=== PATIENT | male | born 1945 | race Caucasian/White ===

== ENCOUNTER → 2016-04-24 | Outpatient (CLI) | payer MEDICARE, OTHER ==
[~2016-04-24] MED LIST: APIX5TAB OR; ASPI-231 PO; FLUO20CA19 PO; LISI-706 PO; METO25TA62 PO; OMEP20CA5 OR; POTA10TA75 PO; SIMV-13 PO
[2016-04-24 13:15] LABS: Albumin 3.8 g/dL (3.4-5.0); BUN/Creatinine Ratio 11.5; Calcium 9.1 mg/dL (8.5-10.1); Potassium 3.8 mmol/L (3.5-5.1)
[2016-04-24 13:18] LABS: Bilirubin, Total 0.5 mg/dL (0.2-1.0); Total Protein 7.3 g/dL (6.4-8.2)
[2016-04-24 13:47] LABS: Basophils # (auto) 0.1 uL; DEFINITIVE VIEW TRANSMISSION; Eosinophils # (auto) 0.2 uL; Eosinophils % (auto) 3.2 % (0.0-7.0); Hematocrit 47.3 % (41.0-53.0); Hemoglobin 14.6 g/dL (13.5-17.5); Lymphocytes # (auto) 2.2 uL; Lymphocytes % (auto) 30.9 % (10.0-50.0); Mean Corpuscular Hemoglobin 28.8 pg (28.0-32.0); Mean Corpuscular Hgb Conc. 30.9 g/dL (32.0-36.0); Mean Corpuscular Volume 93.3 fL (80.0-100.0); Mean Platelet Volume 9.4 fL (7.4-10.4); Monocytes # (auto) 0.7 uL; Monocytes % (auto) 9.2 % (0.0-12.0); Neutrophils % (auto) 55.7 % (37.0-80.0); Platelet Count (auto) 271 10^3/uL (140-450); Red Cell Distribution Width 14.9 % (11.6-16.0); White Blood Cell 7.1 10^3/uL (4.4-10.8)
== END | disposition home or self-care (01) ==
LOC: LAB 10:12
PROVIDERS: ATTEND Internal Medicine
DX: I10 Essential (primary) hypertension (principal); I25.10 Atherosclerotic heart disease of native coronary artery without angina pectoris
CPT/HCPCS: 36415; 80053; 84153; 84439; 84443; 85025

== ENCOUNTER 2021-01-15 07:15 | Day surgery (SDC) | payer MEDICARE, OTHER ==
[~2021-01-15] VITALS: Ht 182.9 cm; Wt 93.0 kg
[~2021-01-15 07:15] MED LIST changes: -ASPI-231 PO; +ASPI1TAB20 PO; -METO25TA62 PO; +METO25TA93 PO; -OMEP20CA5 OR; +OMEP20CA74 OR; +POTA-264 PO; -POTA10TA75 PO
[2021-01-15] MEDS ORDERED: ANGIOMAX 250 MG VIAL IV ONE (10:30)
[2021-01-15] MEDS ORDERED: MIDAZOLAM HCL 2MG/2ML 2ml VIAL (1mg/ml) ONE (10:30)
[2021-01-15] MEDS ORDERED: HEPARIN SODIUM (PORCINE) 5000 UNITS/ML 1ML VIAL ONE (10:30)
[2021-01-15] MEDS ORDERED: VERAPAMIL 2.5MG/ML INJ 2ML VIAL IV ONE (10:30)
[2021-01-15] MEDS ORDERED: LIDOCAINE 2%HCL (LOCAL ANESTH.) INJ 20ML MDV ONE (10:31)
[2021-01-15] MEDS ORDERED: fentaNYL CITRATE 100 MCG/2 ML VL ONE (10:31)
[2021-01-15] MEDS ORDERED: SODIUM CHL 0.9% 0 ML ONE (10:31)
[2021-01-15] MEDS ORDERED: IODIXANOL 320MG/ML 100ML BTL IV ONE ×2 (11:16→11:21)
== END 2021-01-15 14:10 | disposition home or self-care (01) ==
LOC: CATH 07:15
PROVIDERS: ATTEND Internal Medicine
DX: I27.20 Pulmonary hypertension, unspecified (principal); Z20.822 Contact with and (suspected) exposure to COVID-19
CPT/HCPCS: 93460; C1751; C1760; C1894; J1644; J2250; J3010; J7030; Q9967; U0003; 99152; 99153

== ENCOUNTER → 2021-09-01 | Outpatient (CLI) | payer MEDICARE | END | disposition home or self-care (01) | LOC: XYW 10:27 | PROVIDERS: ATTEND Internal Medicine | DX: I08.2 Rheumatic disorders of both aortic and tricuspid valves (principal); I25.810 Atherosclerosis of coronary artery bypass graft(s) without angina pectoris | CPT/HCPCS: 93306 ==

== ENCOUNTER → 2022-01-13 | Outpatient (CLI) | payer OTHER ==
[2022-01-13 07:38] LABS: Calcium 9.3 mg/dL (8.5-10.1); Potassium 3.6 mmol/L (3.5-5.1)
[2022-01-13 07:41] LABS: BUN/Creatinine Ratio 13.7; Bilirubin, Total 1.2 mg/dL (0.2-1.0); Total Protein 6.8 g/dL (6.4-8.2); Uric Acid 5.4 mg/dL (3.5-7.2)
[2022-01-13 08:14] LABS: Basophils # (auto) 0.1 10 ^3/uL (0-0.2); Basophils % (auto) 1.4 % (0.0-2.0); Eosinophils # (auto) 0.2 10 ^3/uL (0-0.8); Eosinophils % (auto) 3.2 % (0.0-7.0); Hematocrit 40.5 % (41.0-53.0); Hemoglobin 14.4 g/dL (13.5-17.5); Lymphocytes # (auto) 2.6 10 ^3/uL (0.4-5.4); Lymphocytes % (auto) 41.2 % (10.0-50.0); Mean Corpuscular Hemoglobin 33.4 pg (28.0-32.0); Mean Corpuscular Hgb Conc. 35.6 g/dL (32.0-36.0); Mean Corpuscular Volume 93.9 fL (80.0-100.0); Monocytes # (auto) 0.5 10 ^3/uL (0-1.3); Monocytes % (auto) 7.5 % (0.0-12.0); Neutrophils # (auto) 2.9 10 ^3/uL (1.6-8.6); Neutrophils % (auto) 46.7 % (37.0-80.0); Nucleated Red Blood Cells % 0.4 %; Red Blood Cells 4.31 10^6/uL (4.5-5.90); Red Cell Distribution Width 12.9 % (11.8-14.3); White Blood Cell 6.3 10^3/uL (4.4-10.8)
== END | disposition home or self-care (01) ==
LOC: LAB 06:38
PROVIDERS: ATTEND Internal Medicine
DX: I25.10 Atherosclerotic heart disease of native coronary artery without angina pectoris (principal); I10 Essential (primary) hypertension
CPT/HCPCS: 36415; 80053; 83721; 84550; 85025

== ENCOUNTER → 2022-09-04 | Outpatient (CLI) | payer OTHER ==
[2022-09-04 06:38] LABS: Basophils # (auto) 0.1 10 ^3/uL (0-0.2); Basophils % (auto) 1.1 % (0.0-2.0); Eosinophils # (auto) 0.2 10 ^3/uL (0-0.8); Eosinophils % (auto) 2.7 % (0.0-7.0); Hematocrit 41.7 % (41.0-53.0); Hemoglobin 14.7 g/dL (13.5-17.5); Lymphocytes % (auto) 32.8 % (10.0-50.0); Mean Corpuscular Hemoglobin 33.9 pg (28.0-32.0); Mean Corpuscular Hgb Conc. 35.3 g/dL (32.0-36.0); Mean Corpuscular Volume 96.3 fL (80.0-100.0); Monocytes # (auto) 0.7 10 ^3/uL (0-1.3); Monocytes % (auto) 7.8 % (0.0-12.0); Neutrophils # (auto) 5.1 10 ^3/uL (1.6-8.6); Neutrophils % (auto) 55.6 % (37.0-80.0); Nucleated Red Blood Cells % 0.3 %; Red Blood Cells 4.33 10^6/uL (4.5-5.90); Red Cell Distribution Width 13.7 % (11.8-14.3); White Blood Cell 9.2 10^3/uL (4.4-10.8)
[2022-09-04 07:18] LABS: Urine Bacteria NONE SEEN /hpf (None Seen); Urine Blood Negative /uL (Negative); Urine Specific Gravity 1.013 (1.001-1.035); Urine WBC <1 /hpf (0 - 3)
[2022-09-04 07:19] LABS: Potassium 3.5 mmol/L (3.5-5.1)
[2022-09-04 07:26] LABS: BUN/Creatinine Ratio 14.4 (10.0-20.0); Bilirubin, Total 1.3 mg/dL (0.2-1.0); Calcium 9.2 mg/dL (8.5-10.1)
[2022-09-04 07:52] LABS: Free T4 (Free Thyroxine) 0.96 ng/dL (0.89-1.76); Prostate Specific Antigen 2.33 ng/mL (0.0-4.0)
[2022-09-04 07:53] LABS: Folate (Folic Acid) > 24.00 ng/mL (5.38-24)
== END | disposition home or self-care (01) ==
LOC: LAB 06:06
PROVIDERS: ATTEND Internal Medicine
DX: I10 Essential (primary) hypertension (principal); E78.5 Hyperlipidemia, unspecified; I25.10 Atherosclerotic heart disease of native coronary artery without angina pectoris
CPT/HCPCS: 36415; 80053; 80061; 81001; 82607; 82746; 84153; 84439; 84443; 85025; 85652

== ENCOUNTER → 2022-11-02 | Outpatient (CLI) | payer OTHER | END | disposition home or self-care (01) | LOC: XYW 13:41 | DX: I51.7 Cardiomegaly (principal); I48.91 Unspecified atrial fibrillation | CPT/HCPCS: 93306 ==

== ENCOUNTER → 2022-11-06 | Outpatient (CLI) | payer OTHER | END | disposition home or self-care (01) | LOC: LAB 13:45 | PROVIDERS: ATTEND Family Medicine | DX: L82.1 Other seborrheic keratosis (principal) | CPT/HCPCS: 88302 ==

== ENCOUNTER → 2022-11-12 | Outpatient (CLI) | payer OTHER ==
[2022-11-12 07:20] LABS: Alanine Aminotransferase 55 U/L (7-40); Albumin 4.7 g/dL (3.2-4.8); Alkaline Phosphatase 69 U/L (46-116); Anion Gap 7.4 (5-15); Aspartate Aminotransferase 50 U/L (13-40); BUN/Creatinine Ratio 17.7 (10.0-20.0); Blood Urea Nitrogen 17 mg/dL (9-23); Carbon Dioxide 25.6 mmol/L (20-30); Chloride 102 mmol/L (98-107); Glucose 106 mg/dL (74-106); Potassium 4.2 mmol/L (3.5-5.1); Sodium 135 mmol/L (136-145)
[2022-11-12 07:21] LABS: Total Protein 6.9 g/dL (5.7-8.2)
== END | disposition home or self-care (01) ==
LOC: LAB 05:59
PROVIDERS: ATTEND Student in an Organized Health Care Education/Training Program
DX: I10 Essential (primary) hypertension (principal); I48.91 Unspecified atrial fibrillation
CPT/HCPCS: 36415; 80053

== ENCOUNTER → 2023-02-03 | Outpatient (CLI) | payer OTHER ==
[2023-02-03 11:19] LABS: Alanine Aminotransferase 47 U/L (7-40); Alkaline Phosphatase 71 U/L (46-116); Anion Gap 8 (5-15); Blood Urea Nitrogen 18 mg/dL (9-23); Calcium 10.3 mg/dL (8.5-10.1); Carbon Dioxide 28 mmol/L (20-30); Chloride 102 mmol/L (98-107); Glucose 111 mg/dL (74-106); Potassium 4.4 mmol/L (3.5-5.1); Sodium 138 mmol/L (136-145)
[2023-02-03 11:21] LABS: Aspartate Aminotransferase 50 U/L (13-40)
[2023-02-03 11:22] LABS: Bilirubin, Total 1.5 mg/dL (0.2-1.0); Total Protein 7.6 g/dL (5.7-8.2)
[2023-02-03 11:39] LABS: Uric Acid 2.8 mg/dL (3.7-9.2)
== END | disposition home or self-care (01) ==
LOC: LAB 10:21
PROVIDERS: ATTEND Internal Medicine
DX: I25.10 Atherosclerotic heart disease of native coronary artery without angina pectoris (principal); I10 Essential (primary) hypertension
CPT/HCPCS: 36415; 80053; 84439; 84443; 84550

== ENCOUNTER 2024-09-29 09:02 | Emergency (ER) | payer OTHER ==
[~2024-09-29] VITALS: Ht 182.9 cm; Wt 87.6 kg
--- NOTE | 2024-09-29 09:19 | ED.PDOC ---
Musculoskeletal HPI Comments A 78 YEAR OLD MALE PRESENTS TO THE ED WITH COMPLAINT OF HEAD INJURY, LEFT HAND PAIN, AND ABRASION OF LEFT FOREARM S/P FALL. PATIENT STATES [place] 1 W[place] AND HE ACCIDENTALLY TRIPPED AND FELL. PATIENT REPORTS HE HIT HIS HEAD AND LANDED ON HIS LEFT ARM. PATIENT REPORTS HE SUSTAINED AN ABRASION ON HIS LEFT FOREARM AND IS NOW EXPERIENCING LEFT HAND PAIN WITH SWELLING. PATIENT DENIES NECK INJURY, LOC, FEVER, CHILLS, SHORTNESS OF BREATH, CHEST PAIN, ABDOMINAL PAIN, NAUSEA, VOMITING, OR OTHER COMPLAINTS. NO OTHER SYMPTOMS OR MODIFYING FACTORS AT THIS TIME. PATIENT IS ALERT, ORIENTED X 4, AND HAS STEADY GAIT. Chief Complaint: Upper Extremity Time Seen by MD: 09:08 Reviewed Notes: Nurses Notes, Medications, Allergies Allergies: Coded Allergies: No Known Drug Allergy (Verified Allergy, Unknown, 01/13/21) Information Source: Patient Mode of Arrival: Ambulatory Location: Left Extremity Location: Forearm, Hand, Other (HEAD) Timing: Days Prehospital treatment: None Severity: Moderate Able to Move Extremity: Yes Bear Weight: Fully Pain: Moderate Mechanism: Blunt Trauma Circumstances: Fall Onset of Symptoms: After Trauma Symptoms: Pain Last Tetanus: Unknown Associated signs and symptoms: None Past Medical History PAST MEDICAL HISTORY: AFIB, High Lipids, HTN Past Medical History (Other): DDD Surgical History: Denies all surgeries Family History Family History: Reviewed,noncontributory to illness Social History Smoker: Non-Smoker Alcohol: Denies ETOH Use Drugs: Denies Drug Use Lives In: Home Constitutional: denies: chills, diaphoresis, fatigue, fever, malaise, sweats, weakness, others EENTM: denies: blurred vision, double vision, ear bleeding, ear discharge, ear drainage, ear pain, ear ringing, eye pain, eye redness, hearing loss, mouth pain, mouth swelling, nasal discharge, nose bleeding, nose congestion, nose pain, photophobia, tearing, throat pain, throat swelling, voice changes, others Respiratory: denies: cough, hemoptysis, orthopnea, SOB at rest, shortness of breath, SOB with excertion, stridor, wheezing, others Cardiovascular: denies: chest pain, dizzy spells, diaphoresis, Dyspnea on exertion, edema, irregular heart beat, left arm pain, lightheadedness, palpitations, PND, syncope, others Gastrointestinal: denies: abdomen distended, abdominal pain, blood streaked bowels, constipated, diarrhea, dysphagia, difficulty swallowing, hematemesis, melena, nausea, poor appetite, poor fluid intake, rectal bleeding, rectal pain, vomiting, others Genitourinary: denies: burning, dysuria, flank pain, frequency, hematuria, incontinence, penile discharge, penile sore, pain, testicle pain, testicle swelling, urgency, others Neurological: denies: dizziness, fainting, headache, left sided numbness, left sided weakness, numbness, paresthesia, pre-existing deficit, right sided numbness, right sided weakness, seizure, speech problems, tingling, tremors, weakness, others Musculoskeletal: reports: joint pain, joint swelling, muscle pain, others (LEFT HAND PAIN); denies: back pain, gout, muscle stiffness, neck pain Integumetry: reports: others (ABRASION OF LEFT FOREARM); denies: bruises, change in color, change in hair/nails, dryness, laceration, lesions, lumps, rash, wounds Allergic/Immunocompromised: denies: Difficulty Healing, Frequent Infections, Hives, Itching, others Hematologic/Lymphatic: denies: anemia, blood clots, easy bleeding, easy bruising, swollen glands, others Endocrine: denies: excessive hunger, excessive sweating, excessive thirst, excessive urination, flushing, intolerance to cold, intolerance to heat, unexplained weight gain, unexplained weight loss, others Psychiatric: denies: anxiety, bipolar disorder, depression, hopeless, panic disorder, schizophrenia, sleepless, suicidal, others All Other Systems: Reviewed and Negative Physical Exam General Appearance: No Apparent Distress, Normal HEENT: Head (NO SCALP CONTUSION AND HEMATOMA, NO DEFORMITY. ), Normal ENT Inspection, PERRL/EOMI, Pharynx Normal, TMs Normal Neck: Full Range of Motion, Non-Tender, Normal, Normal Inspection Respiratory: Chest Non-Tender, Lungs Clear, No Accessory Muscle Use, No Respiratory Distress, Normal Breath Sounds Cardiovascular: No Edema, No JVD, No Murmur, No Gallop, Normal Peripheral Pulses, Regular Rate/Rhythm Breast Exam: Deferred Gastrointestinal: No Organomegaly, Non Tender, No Pulsatile Mass, Normal Bowel Sounds, Soft Genitalia: Deferred Pelvic: Deferred Rectal: Deferred Extremities: No calf tenderness, Normal capillary refill, Normal range of motion, No pedal edema, Swelling (TENDERNESS AND MILD SWELLING ON LEFT THUMB, NO BONY TENDERNESS AND DEFORMITY. ), Tender (AND ABRASION ON LEFT FOREARM, NO BONY TENDERNESS AND SWELLING, NO DEFORMITY. ) Musculoskeletal : Apperance: Normal Neurologic: Alert, strategic planning specialist II-XII nml as Tested, No Motor Deficits, Normal Affect, Normal Mood, No Sensory Deficits Cerebellar Function: Normal Reflexes: Normal Skin: Dry, Normal Color, Warm, Wounds (ABRASION ON LEFT POSTERIOR FOREARM, NO BLEEDING AND FB. ) Peripheral Pulses: 2+ carotid (R), 2+ carotid (L) Lymphatic: No Adenopathy Was a procedure done? Was a procedure done?: No Differential Diagnosis EXT Differential Diagnosis: Fracture, Sprain, DJD, Contusion, Strain, Arthritis Other Differential Diagnosis ABRASION OF LEFT FOREARM X-Ray, Labs, Meds, VS Vital Signs Date Time Temp Pulse Resp B/P (MAP) Pulse Ox O2 Delivery O2 Flow Rate FiO2 09/29/24 09:19 98.2 92 16 145/76 (99) 97 98.2 CLINICAL INDICATION: FALL TECHNIQUE: 3 views of the left hand were performed. XY L HAND 3V XRAY Comparison: None FINDINGS/IMPRESSION: 1. No acute fracture or dislocation of the left hand. 2. Triangular calcification along the volar-medial base of the 1st proximal phalanx is suggestive of old ligamentous injury. 3. 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 ATED BY: MELINA BHAT MD DICTATED DATE/TIME: 09/29/24950 SIGNED BY: MELINA BHAT MD SIGNED DATE/TIME: 09/29/24950 CC: CT HEAD WITHOUT CONTRAST INDICATION: FALL EXAM DATE: 09/29/2024 09:18 AM COMPARISON: None RADIATION DOSE: CTDIvol: 63 mGy, DLP: 1256 mGy*cm PROCEDURE: CT scans of the head were obtained from the vertex to the skull base. Sagittal and coronal reconstructions were provided. All CT scans at this medical facility are performed using dose modulation techniques as appropriate to a performed exam including the following: Automated exposure control was utilized; adjustment of the MA and/or KV according to patient size; and use of iterative reconstruction technique. FINDINGS: There is sulcal and ventricular prominence. The brainshows normal morphology and méndez-white matter differentiation, without intracranial hemorrhage, extra-axial fluid collection, mass effect or acute large vessel infarct. The ventricles are normal in size. The basal cisterns are patent. The skull and visible facial bones are intact. The paranasal sinuses, mastoid air cells and middle ear cavities are well-aerated. The soft tissues of the scalp are unremarkable. IMPRESSION: No acute intracranial abnormality. ATED BY: STAN HOLLOWAY MD DICTATED DATE/TIME: 09/29/24941 SIGNED BY: STAN HOLLOWAY MD SIGNED DATE/TIME: 09/29/24941 CC: X-Ray, Labs, Meds, VS Comment EXTERNAL MEDICAL RECORDS: NONE INDEPENDENT HISTORIANS: NONE SOCIAL DETERMINANTS OF HEALTH: NONE LABS ORDERED: NONE REVIEWED AND INTERPRETED RESULTS: NONE IMAGING ORDERED: CT BRAIN, XR HAND LT TREATMENTS ORDERED: PROCEDURES DONE: NONE PATIENT'S CASE AND RESULTS HAVE BEEN DISCUSSED WITH THE ED ATTENDING PHYSICIAN, DR. DURAN AND HE AGREES WITH MY PLAN OF CARE. PATIENT WILL BE DISCHARGED HOME WITH RX: KEFLEX I HAVE DISCUSSED IMAGING RESULTS WITH THE PATIENT AND HAVE INSTRUCTED THE PATIENT TO FOLLOW UP WITH THEIR PCP IN 1-2 DAYS. THE PATIENT FULLY UNDERSTANDS THEIR RESULTS AND ARE AWARE THEY NEED TO FOLLOW UP WITH THEIR PCP FOR FURTHER EVALUATION IF THEIR SYMPTOMS PERSIST. Images Reviewed?: Images reviewed and evaluated by me Time of 1ST Reevaluation: 10:25 Reevaluation 1ST: Improved Patient Education/Counseling: Diagnosis, Treatment, Need For Follow Up Family Education/Counseling: Diagnosis, Treatment, Need For Follow Up Medical Screening: No EMC Exist At This Time Departure 1 Departure Time of Disposition: 10:26 Impression: Primary Impression: Head injury Qualified Codes: S09.90XA - Unspecified injury of head, initial encounter Additional Impressions: Abrasion of left forearm Qualified Codes: S50.812A - Abrasion of left forearm, initial encounter Sprain of left thumb Qualified Codes: S63.642A - Sprain of metacarpophalangeal joint of left thumb, initial encounter Disposition: HOME / SELF CARE / HOMELESS Condition: Stable Additional Instructions: FOLLOW-UP WITH PCP IN 1 TO 2 DAYS. TAKE MEDICATIONS PRESCRIBED. RETURN TO ED FOR ANY NEW OR WORSENING SYMPTOMS. e-Prescriptions Cephalexin Monohydrate (Cephalexin) 500 Mg Cap 1 CAP PO TID, #30 CAP Prov: MARIANNE RAHMAN 09/29/24 Discharged With: Self Critical Care Note Critical Care Time?: No Stability Stability form required: No I personally scribed for MARIANNE RAHMAN ([email or web address]) on 09/29/24 at 09:19. Electronically submitted by Gregor Sheth ([email or web address]). I personally scribed for MARIANNE RAHMAN ([email or web address]) on 09/29/24 at 10:01. Electronically submitted by Gregor Sheth ([email or web address]). MARIANNE RAHMAN Sep 29, 2024 09:19
--- NOTE | 2024-09-29 09:44 | DVH ---
CT HEAD WITHOUT CONTRAST INDICATION: FALL EXAM DATE: 09/29/2024 09:18 AM COMPARISON: None RADIATION DOSE: CTDIvol: 63 mGy, DLP: 1256 mGy*cm PROCEDURE: CT scans of the head were obtained from the vertex to the skull base. Sagittal and coronal reconstructions were provided. All CT scans at this medical facility are performed using dose modulation techniques as appropriate t o a performed exam including the following: Automated exposure control was utilized; adjustment of th e MA and/or KV according to patient size; and use of iterative reconstruction technique. FINDINGS: There is sulcal and ventricular prominence. The brainshows normal morphology and méndez-whi te matter differentiation, without intracranial hemorrhage, extra-axial fluid collection, mass effect or acute large vessel infarct. The ventricles are normal in size. The basal cisterns are patent. The skull and visible facial bones are intact. The paranasal sinuses, mastoid air cells and middle ear c avities are well-aerated. The soft tissues of the scalp are unremarkable. IMPRESSION: No acute intracranial abnormality.
--- NOTE | 2024-09-29 09:53 | DVH ---
CLINICAL INDICATION: FALL TECHNIQUE: 3 views of the left hand were performed. XY L HAND 3V XRAY Comparison: None FINDINGS/IMPRESSION: 1. No acute fracture or dislocation of the left hand. 2. Triangular calcification along the volar-medial base of the 1st proximal phalanx is suggestive of old ligamentous injury. 3. 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
[2024-09-29] MEDS ORDERED: CEPH500C PO (10:20)
[2024-09-29 10:29] VITALS: BP 104/61; PULSE 71; RESP 16; TEMP 97.4; O2SAT 97
== END 2024-09-29 10:32 | disposition home or self-care (01) ==
LOC: ER 09:02
DX: S63.642A Sprain of metacarpophalangeal joint of left thumb, initial encounter (principal); S50.812A Abrasion of left forearm, initial encounter; S09.90XA Unspecified injury of head, initial encounter; I48.91 Unspecified atrial fibrillation; I10 Essential (primary) hypertension; W01.0XXA Fall on same level from slipping, tripping and stumbling without subsequent striking against object, initial encounter; Y93.89 Activity, other specified; Y92.89 Other specified places as the place of occurrence of the external cause; Y99.8 Other external cause status
CPT/HCPCS: 70450; 73130

== ENCOUNTER 2024-12-02 08:09 | Inpatient (IN) | payer OTHER ==
[~2024-12-02] VITALS: Ht 182.9 cm; Wt 88.4 kg
[~2024-12-02 08:09] MED LIST changes: -APIX5TAB OR; -ASPI1TAB20 PO; +CEPH500C PO; -FLUO20CA19 PO; -LISI-706 PO; -METO25TA93 PO; -OMEP20CA74 OR; -POTA-264 PO; -SIMV-13 PO
--- NOTE | 2024-12-02 08:25 | ECG ---
[facility] Test Date: 2024-12-02 Test Time: 08:19:45 Pat Name: ERICA JAEGER Department: [facility] ED Patient ID: [id number] Room: 0246T Gender: M Time Study Clerk: gp : 1945 Requested By: ROXY MARCOS Order Number: [id number] Reading MD: López Keenan Measurements Intervals [place] Rate: 113 P: 0 ID: 0 QRS: 144 QRSD: 116 T: 6 QT: 345 QTc: 473 Interpretive Statements Atrial fibrillation Right bundle branch block Anteroseptal infarct, old Baseline wander in lead(s) III,aVL Electronically Signed On 12-06-2024 9:30:16 PDT by López Keenan Please click the below link to view image of tracing.
--- NOTE | 2024-12-02 08:56 | ED.PDOC ---
SOB-HPI HPI Comments 78 y.o male with PMHx of AFIB, HTN and HLD, presents to the ED for a chief complaint of SOB that started 4-5 days ago and has progressively worsened. At first, patient only had exertional SOB but now is constant even when resting. He mentions that SOB enables him to sleep, states he tosses and turns and has also been feeling weak as a result of lack of sleep. Additionally, he complains of dizziness linked to BP and AFIB monitored at home. He denies any chest pain, fever, chills, pain. Chief Complaint: Shortness of Breath Time Seen by MD: 08:44 Primary Care Provider: AYDIN Antonio notes: Nurses Notes, Medications, Allergies Information Source: Patient Mode of Arrival: Ambulatory Severity: Moderate Timing: Days Duration: Since onset Context: At Rest PE Risk Factors: None History of: None Associated Signs and Symptoms: None Past Medical History PAST MEDICAL HISTORY: AFIB, High Lipids, HTN Surgical History: Denies all surgeries Family History Family History: Reviewed,noncontributory to illness Social History Smoker: Non-Smoker Alcohol: Denies ETOH Use Drugs: Denies Drug Use Lives In: Home Constitutional: reports: weakness; denies: chills, diaphoresis, fatigue, fever, malaise, sweats, others EENTM: denies: blurred vision, double vision, ear bleeding, ear discharge, ear drainage, ear pain, ear ringing, eye pain, eye redness, hearing loss, mouth pain, mouth swelling, nasal discharge, nose bleeding, nose congestion, nose pain, photophobia, tearing, throat pain, throat swelling, voice changes, others Respiratory: reports: SOB at rest, shortness of breath, SOB with excertion; denies: cough, hemoptysis, orthopnea, stridor, wheezing, others Cardiovascular: denies: chest pain, dizzy spells, diaphoresis, Dyspnea on exertion, edema, irregular heart beat, left arm pain, lightheadedness, palpitations, PND, syncope, others Gastrointestinal: denies: abdomen distended, abdominal pain, blood streaked bowels, constipated, diarrhea, dysphagia, difficulty swallowing, hematemesis, melena, nausea, poor appetite, poor fluid intake, rectal bleeding, rectal pain, vomiting, others Genitourinary: denies: burning, dysuria, flank pain, frequency, hematuria, incontinence, penile discharge, penile sore, pain, testicle pain, testicle swelling, urgency, others Neurological: denies: dizziness, fainting, headache, left sided numbness, left sided weakness, numbness, paresthesia, pre-existing deficit, right sided numbness, right sided weakness, seizure, speech problems, tingling, tremors, weakness, others Musculoskeletal: denies: back pain, gout, joint pain, joint swelling, muscle pain, muscle stiffness, neck pain, others Integumetry: denies: bruises, change in color, change in hair/nails, dryness, laceration, lesions, lumps, rash, wounds, others Allergic/Immunocompromised: denies: Difficulty Healing, Frequent Infections, Hives, Itching, others Hematologic/Lymphatic: denies: anemia, blood clots, easy bleeding, easy bruising, swollen glands, others Endocrine: denies: excessive hunger, excessive sweating, excessive thirst, excessive urination, flushing, intolerance to cold, intolerance to heat, unexplained weight gain, unexplained weight loss, others Psychiatric: denies: anxiety, bipolar disorder, depression, hopeless, panic disorder, schizophrenia, sleepless, suicidal, others All Other Systems: Reviewed and Negative Physical Exam General Appearance: Moderate Distress HEENT: Normal ENT Inspection, Pharynx Normal, TMs Normal Neck: Full Range of Motion, Non-Tender, Normal, Normal Inspection Respiratory: Chest Non-Tender, Lungs Clear, No Accessory Muscle Use, Normal Breath Sounds Cardiovascular: Bradycardia, Irregular, Tachycardia Breast Exam: Deferred Gastrointestinal: No Organomegaly, Non Tender, No Pulsatile Mass, Normal Bowel Sounds, Soft Genitalia: Deferred Pelvic: Deferred Rectal: Deferred Extremities: No calf tenderness, Normal capillary refill, Normal inspection, Normal range of motion, Non-tender, No pedal edema Musculoskeletal : Apperance: Normal Neurologic: Alert, senior laboratory technician II-XII nml as Tested, No Motor Deficits, Normal Affect, Normal Mood, No Sensory Deficits Cerebellar Function: Normal Reflexes: Normal Skin: Dry, Normal Color, Warm Peripheral Pulses: 3+ Radial (R), 3+ Radial (L) Lymphatic: No Adenopathy EKG EKG : Pulse Rate (adult): 113 Cardiac Rhythm: Afib Was a procedure done? Was a procedure done?: No Differential Dx Differential Diagnosis: Anxiety, Asthma, Bronchitis, CHF, COPD, Pneumonia, Respiratory Distress, URI X-Ray, Labs, Meds, VS Vital Signs Date Time Temp Pulse Resp B/P (MAP) Pulse Ox O2 Delivery O2 Flow Rate FiO2 12/02/24 12:03 99 24 120/88 (99) 95 12/02/24 10:53 85 18 124/82 (96) 94 12/02/24 10:16 93 22 133/77 (95) 93 12/02/24 09:56 104 17 94 Nasal Cannula* 2 28 12/02/24 09:55 93 Nasal Cannula* 2 28 12/02/24 09:31 130 17 138/89 (105) 93 12/02/24 08:56 113 12/02/24 08:19 113 12/02/24 08:12 98.2 110 20 137/93 94 98.2 Lab Test 12/02/24 12:04 12/02/24 10:15 12/02/24 09:17 Range/Units Troponin I High Sensitivity Pending 11 12 </=54 ng/L White Blood Count 7.8 4.4-10.8 10^3/uL Red Blood Count 4.53 4.5-5.90 10^6/uL Hemoglobin 15.4 13.5-17.5 g/dL Hematocrit 44.7 41.0-53.0 % Mean Corpuscular Volume 98.7 80.0-100.0 fL Mean Corpuscular Hemoglobin 34.1 H 28.0-32.0 pg Mean Corpuscular Hemoglobin Concent 34.5 32.0-36.0 g/dL Red Cell Distribution Width 13.9 11.8-14.3 % Platelet Count 163 140-450 10^3/uL Mean Platelet Volume 9.0 6.9-10.8 fL Neutrophils (%) (Auto) 60.8 37.0-80.0 % Lymphocytes (%) (Auto) 29.0 10.0-50.0 % Monocytes (%) (Auto) 8.5 0.0-12.0 % Eosinophils (%) (Auto) 0.9 0.0-7.0 % Basophils (%) (Auto) 0.8 0.0-2.0 % Neutrophils # (Auto) 4.7 1.6-8.6 10 ^3/uL Lymphocytes # (Auto) 2.3 0.4-5.4 10 ^3/uL Monocytes # (Auto) 0.7 0-1.3 10 ^3/uL Eosinophils # (Auto) 0.1 0-0.8 10 ^3/uL Basophils # (Auto) 0.1 0-0.2 10 ^3/uL Nucleated Red Blood Cells 0.1 % Sodium Level 141 136-145 mmol/L Potassium Level 4.1 3.5-5.1 mmol/L Chloride Level 107 98-107 mmol/L Carbon Dioxide Level 22 20-31 mmol/L Anion Gap 12 5-15 Blood Urea Nitrogen 10 9-23 mg/dL Creatinine 1.06 0.700-1.30 mg/dL Glomerular Filtration Rate Calc 73 >90 mL/min BUN/Creatinine Ratio 9.4 L 10.0-20.0 Serum Glucose 108 H 74-106 mg/dL Calcium Level 10.0 8.7-10.4 mg/dL B-Type Natriuretic Peptide 965.23 0-100 pg/mL Current Medications Medications (Trade) Dose Ordered Sig/Nora Route Start Time Stop Time Status Last Admin Amiodarone HCl 100 ml @ 600 mls/hr ONCE ONCE IV 12/02/24 09:00 12/02/24 09:09 DC 12/02/24 09:36 Amiodarone HCL/ Dextrose 200 ml @ 33.33 mls/ hr ONCE ONCE IV 12/02/24 09:15 12/02/24 15:15 12/02/24 09:50 AP portable chest CLINICAL INDICATION: sob FINDINGS: Heart size is enlarged. Evidence of prior valvular surgery. No infiltrates or effusions IMPRESSION: 1. No acute cardiopulmonary pathology ATED BY: CIRO CANTOR MD Patient alert. Came in because of chest pain. EKG shows atrial fibrillation. BNP elevated. Was given Lasix. Started amiodarone. Continues to have shortness a breath. Reviewed his history. Explained to the patient. Continue monitoring. Place him on oxygen. Time of 1ST Reevaluation: 08:53 Reevaluation 1ST: Unchanged Patient Education/Counseling: Diagnosis, Treatment, Prognosis Family Education/Counseling: No Family Present SEPSIS Sepsis Screen Date sepsis recognized/suspect: Dec 02, 2024 Time Sepsis recognized/suspect: 08 Recent Procedure: No On Antibiotic Therapy: No Respiratory Rate >20: No Heart Rate >90: Yes Temp<36 C (96.8 F) or >38.3 C: No SBP <90 or MAP <65 mmHG: No New Acute Mental Status Change: No Is the patient on CPAP, BIPAP,: No Physician Orders Chest Portable (12/02/24 08:54) Urinalysis (12/02/24 08:54) Troponin-I Hs (12/02/24 11:54) Amiodarone 360mg/200ml Premix (Nexterone (12/02/24 09:15) Heplock Iv (12/02/24 ) Vital Signs Date Time Temp Pulse Resp B/P (MAP) Pulse Ox O2 Delivery O2 Flow Rate FiO2 12/02/24 12:03 99 24 120/88 (99) 95 12/02/24 10:53 85 18 124/82 (96) 94 12/02/24 10:16 93 22 133/77 (95) 93 12/02/24 09:56 104 17 94 Nasal Cannula* 2 28 12/02/24 09:55 93 Nasal Cannula* 2 28 12/02/24 09:31 130 17 138/89 (105) 93 12/02/24 08:56 113 12/02/24 08:19 113 12/02/24 08:12 98.2 110 20 137/93 94 98.2 Laboratory Tests Test 12/02/24 09:17 White Blood Count 7.8 10^3/uL (4.4-10.8) Medications Medications Dose Ordered Sig/Nora Route Start Time Stop Time Status Last Admin Dose Admin Amiodarone HCl 100 ml @ 600 mls/hr ONCE ONCE IV 12/02/24 09:00 12/02/24 09:09 DC 12/02/24 09:36 Amiodarone HCL/ Dextrose 200 ml @ 33.33 mls/ hr ONCE ONCE IV 12/02/24 09:15 12/02/24 15:15 12/02/24 09:50 Departure 1 Departure Time of Disposition: 12:25 Impression: Primary Impression: CHF (congestive heart failure) Qualified Codes: I50.43 - Acute on chronic combined systolic (congestive) and diastolic (congestive) heart failure Additional Impression: Atrial fibrillation Qualified Codes: I48.0 - Paroxysmal atrial fibrillation Disposition: ADMITTED INPATIENT Admit to: Med Surg Condition: Guarded Critical Care Note Critical Care Time?: Yes (90 min-critical care time only) Stability Stability form required: No Heart Score Heart Score: Heart Score Response (Comments) Value History Slightly Suspicious 0 EKG Normal 0 Age >65 2 Risk Factors >3 or Hx ASHD 2 Troponin Normal limit 0 Total 4 I personally scribed for ROXY MARCOS MD ([email or web address]) on 12/02/24 at 08:56. Electronically submitted by Dee Baez ([facility]). I personally scribed for ROXY MARCOS MD ([email or web address]) on 12/02/24 at 09:59. Electronically submitted by Dee Baez ([facility]). ROXY MARCOS MD Dec 02, 2024 08:56
--- NOTE | 2024-12-02 09:21 | DVH ---
AP portable chest CLINICAL INDICATION: sob FINDINGS: Heart size is enlarged. Evidence of prior valvular surgery. No infiltrates or effusions IMPRESSION: 1. No acute cardiopulmonary pathology
[2024-12-02 09:36] LABS: Hematocrit 44.7 % (41.0-53.0); Hemoglobin 15.4 g/dL (13.5-17.5); Mean Corpuscular Hemoglobin 34.1 pg (28.0-32.0); Mean Corpuscular Volume 98.7 fL (80.0-100.0); Nucleated Red Blood Cells % 0.1 %
[2024-12-02] MEDS: AMIODARONE BOLUS KIT 100 ML IV ONE (09:36)
[2024-12-02 09:42] LABS: Chloride 107 mmol/L (98-107); Potassium 4.1 mmol/L (3.5-5.1); Sodium 141 mmol/L (136-145)
[2024-12-02 09:43] LABS: Anion Gap 12 (5-15); Carbon Dioxide 22 mmol/L (20-31)
[2024-12-02 09:44] LABS: Calcium 10.0 mg/dL (8.7-10.4)
[2024-12-02 09:48] LABS: BUN/Creatinine Ratio 9.4 (10.0-20.0); Blood Urea Nitrogen 10 mg/dL (9-23)
[2024-12-02 09:49] LABS: Glucose 108 mg/dL (74-106)
[2024-12-02] MEDS: AMIODARONE 360mg/200mL PREMIX 200 ML IV ONE (09:50)
[2024-12-02 09:56] VITALS: PULSE 104; RESP 17; O2SAT 94
[2024-12-02] MEDS ORDERED: ALLO300T2 PO (10:15)
[2024-12-02] MEDS ORDERED: ESOM40CA39 PO (10:15)
[2024-12-02] MEDS ORDERED: EZET10TA22 PO (10:15)
[2024-12-02] MEDS ORDERED: ATOR40TA52 PO (10:15)
[2024-12-02] MEDS ORDERED: WARF-66 PO (10:15)
[2024-12-02] MEDS ORDERED: CARV6.2551 PO (10:15)
[2024-12-02] MEDS ORDERED: CHOL20007 PO (10:15)
[2024-12-02] MEDS ORDERED: SACU1TAB PO (10:15)
[2024-12-02] MEDS ORDERED: MULTTAB99 PO (10:15)
[2024-12-02] MEDS ORDERED: EMPA1TAB PO (10:15)
[2024-12-02] MEDS: FUROSEMIDE 40 MG/4 ML VIAL IV ONE (12:53)
[2024-12-02 13:22] LABS: Urine Protein, UAD Negative (Negative)
[2024-12-02] MEDS: AMIODARONE 360mg/200mL PREMIX 200 ML IV SCH (15:15)
--- NOTE | 2024-12-02 16:10 | DVHHP2 ---
History of Present Illness History of Present Illness 78 y.o male with PMHx of AFIB, HTN and HLD, presents to the ED for a chief complaint of SOB that started 4-5 days ago and has progressively worsened. At first, patient only had exertional SOB but now is constant even when resting. He mentions that SOB enables him to sleep, states he tosses and turns and has also been feeling weak as a result of lack of sleep. Additionally, he complains of dizziness linked to BP and AFIB monitored at home. He denies any chest pain, fever, chills, pain. Review of Systems Constitutional: Yes: Weakness; No: Fever, Chills, Sweats, Malaise, Other Respiratory: Shortness of breath, SOB with excertion; No: Cough, Dry, Wheezing, Hemoptysis, Pleuritic Pain, Sputum, Wheezing, Other Cardiovascular: Palpitations; No: Chest Pain, Orthopnea, Paroxysmal Noc. Dyspnea, Edema, Lt Headedness, Other Gastrointestinal: No: Nausea, Vomiting, Abdominal Pain, Diarrhea, Constipation, Melena, Hematochezia, Other Neurological: No: Weakness, Numbness, Incoordination, Change in speech, Confusion, Seizures, Other Allergies: Coded Allergies: No Known Drug Allergy (Verified Allergy, Unknown, 01/13/21) Medications Current Medications Medications Dose Ordered Sig/Nora Route Start Time Stop Time Status Last Admin Dose Admin Amiodarone HCL/ Dextrose 200 ml @ 16.66 mls/ hr Q12H IV 12/02/24 15:50 12/02/24 15:34 16.66 MLS/HR Exam Vital Signs Vital Signs Date Time Temp Pulse Resp B/P (MAP) Pulse Ox O2 Delivery O2 Flow Rate FiO2 12/02/24 14:25 105 24 130/83 (99) 95 12/02/24 09:56 Nasal Cannula* 2 28 12/02/24 08:12 98.2 98.2 Exam GEN: Healthy appearing, well-developed, NAD. HEENT: NC/AT; MMM. CV: Irregularly irregular, tachycardic LUNGS: Rales up to middle lobes bilaterally, no JVD, ABD: Soft, NT/ND, NBS, no masses or organomegaly. EXT: skin Warm, well perfused. no rashes. No clubbing, cyanosis, or edema. No edema NEURO: Ambulating with no limitations. No focal deficits. Labs/Xrays Labs Test 12/02/24 12:10 12/02/24 12:04 12/02/24 09:17 Range/Units Urine Color Yellow Yellow Urine Clarity Clear Clear Urine pH 5.0 5.0-9.0 Urine Specific [place] 1.030 1.001-1.035 Urine Protein Negative Negative Urine Ketones 1+ H Negative Urine Blood Negative Negative /uL Urine Nitrite Negative Negative Urine Bilirubin Negative Negative Urine Urobilinogen Normal Negative mg/dL Urine Leukocyte Esterase Negative Negative /uL Urine RBC <1 0 - 3 /hpf Urine Microscopic WBC 1 0-3 /HPF Urine Squamous Epithelial Cells None seen <5 /hpf Urine Bacteria None seen None Seen /hpf Urine Glucose 4+ H Normal mg/dL Troponin I High Sensitivity 15 </=54 ng/L White Blood Count 7.8 4.4-10.8 10^3/uL Red Blood Count 4.53 4.5-5.90 10^6/uL Hemoglobin 15.4 13.5-17.5 g/dL Hematocrit 44.7 41.0-53.0 % Mean Corpuscular Volume 98.7 80.0-100.0 fL Mean Corpuscular Hemoglobin 34.1 H 28.0-32.0 pg Mean Corpuscular Hemoglobin Concent 34.5 32.0-36.0 g/dL Red Cell Distribution Width 13.9 11.8-14.3 % Platelet Count 163 140-450 10^3/uL Mean Platelet Volume 9.0 6.9-10.8 fL Neutrophils (%) (Auto) 60.8 37.0-80.0 % Lymphocytes (%) (Auto) 29.0 10.0-50.0 % Monocytes (%) (Auto) 8.5 0.0-12.0 % Eosinophils (%) (Auto) 0.9 0.0-7.0 % Basophils (%) (Auto) 0.8 0.0-2.0 % Neutrophils # (Auto) 4.7 1.6-8.6 10 ^3/uL Lymphocytes # (Auto) 2.3 0.4-5.4 10 ^3/uL Monocytes # (Auto) 0.7 0-1.3 10 ^3/uL Eosinophils # (Auto) 0.1 0-0.8 10 ^3/uL Basophils # (Auto) 0.1 0-0.2 10 ^3/uL Nucleated Red Blood Cells 0.1 % Sodium Level 141 136-145 mmol/L Potassium Level 4.1 3.5-5.1 mmol/L Chloride Level 107 98-107 mmol/L Carbon Dioxide Level 22 20-31 mmol/L Anion Gap 12 5-15 Blood Urea Nitrogen 10 9-23 mg/dL Creatinine 1.06 0.700-1.30 mg/dL Glomerular Filtration Rate Calc 73 >90 mL/min BUN/Creatinine Ratio 9.4 L 10.0-20.0 Serum Glucose 108 H 74-106 mg/dL Calcium Level 10.0 8.7-10.4 mg/dL B-Type Natriuretic Peptide 965.23 0-100 pg/mL SEPSIS Sepsis Screen Date sepsis recognized/suspect: Dec 02, 2024 Time Sepsis recognized/suspect: 08 Recent Procedure: No On Antibiotic Therapy: No Respiratory Rate >20: No Heart Rate >90: Yes Temp<36 C (96.8 F) or >38.3 C: No SBP <90 or MAP <65 mmHG: No New Acute Mental Status Change: No Is the patient on CPAP, BIPAP,: No Physician Orders Chest Portable (12/02/24 08:54) Heplock Iv (12/02/24 ) Amiodarone 360mg/200ml Premix (Nexterone (12/02/24 15:50) Vital Signs Date Time Temp Pulse Resp B/P (MAP) Pulse Ox O2 Delivery O2 Flow Rate FiO2 12/02/24 14:25 105 24 130/83 (99) 95 12/02/24 13:27 95 20 140/97 (111) 95 12/02/24 12:53 133/91 12/02/24 12:03 99 24 120/88 (99) 95 12/02/24 10:53 85 18 124/82 (96) 94 12/02/24 10:16 93 22 133/77 (95) 93 12/02/24 09:56 104 17 94 Nasal Cannula* 2 28 12/02/24 09:55 93 Nasal Cannula* 2 28 12/02/24 09:31 130 17 138/89 (105) 93 12/02/24 08:56 113 12/02/24 08:19 113 12/02/24 08:12 98.2 110 20 137/93 94 98.2 Laboratory Tests Test 12/02/24 09:17 White Blood Count 7.8 10^3/uL (4.4-10.8) Medications Medications Dose Ordered Sig/Nora Route Start Time Stop Time Status Last Admin Dose Admin Amiodarone HCl 100 ml @ 600 mls/hr ONCE ONCE IV 12/02/24 09:00 12/02/24 09:09 DC 12/02/24 09:36 600 MLS/HR Amiodarone HCL/ Dextrose 200 ml @ 16.66 mls/ hr Q12H IV 12/02/24 15:50 12/02/24 15:34 16.66 MLS/HR Amiodarone HCL/ Dextrose 200 ml @ 33.33 mls/ hr ONCE ONCE IV 12/02/24 09:15 12/02/24 15:15 DC 12/02/24 09:50 33.33 MLS/HR Furosemide 40 mg ONCE ONCE IV 12/02/24 12:30 12/02/24 12:31 DC 12/02/24 12:53 40 MG Assessment/Plan Assessment/Plan 12/02: Patient here with shortness of breath, BNP elevated, CXR with increased pulmonary artery size concern for vascular congestion,. In ED found to be in AFib RVR, amnio was given. On warfarin for unknown reason mostly warfarin 5 mg,. We will continue amiodarone, start Lasix and diurese, echo pending Diagnosis: Acute hypoxic respiratory failure Atrial fibrillation with rapid ventricular rate Acute exacerbation of chronic CHF, diastolic and systolic dysfunction likely Hypertension Hyperlipidemia History of CAD with 2 X CABG Plan: Lasix 40 IV b.i.d. Amiodarone IV status post load Echo cardiogram pending Continue other home medications allopurinol, Lipitor, Coreg, Jardiance, Entresto, warfarin 5 We will use metoprolol tartrate instead of Coreg Warfarin INR per pharmacy Tele Full code Plan discussed with: Patient Date of Service: Dec 02, 2024 Billing Provider: XIMENA HARMON MD Common Visit Codes: [id number] INP/OBS CARE (HIGH) Secondary Visit Codes: [id number] CARE PLAN 30 MINUTES XIMENA HARMON MD Dec 02, 2024 16:10
[2024-12-02] MEDS ORDERED: ONDANSETRON HCL 4 MG/2 ML VIAL IV PRN (16:15)
[2024-12-02] MEDS ORDERED: ACETAMINOPHEN 325 MG TAB PO PRN (16:15)
[2024-12-02] MEDS: METOPROLOL TARTRATE 25 MG TAB ONE (17:03)
[2024-12-02] MEDS: METOPROLOL TARTRATE 50 MG TAB ONE (17:06)
[2024-12-02] MEDS: METOPROLOL TARTRATE 50 MG TAB PO ONE (17:06)
[2024-12-02 18:09] LABS: INR 3.37 (0.9-1.15); Prothrombin Time 31.7 sec (9.3-11.8)
[2024-12-02] MEDS: SACUBITRIL-VALSARTAN 24mg/26mg TAB PO SCH (21:49)
[2024-12-02 21:58] VITALS: BP 133/84; PULSE 95; RESP 17; TEMP 97.5; O2SAT 97
[2024-12-02 22:41] VITALS: PULSE 88; RESP 18; O2SAT 96
[2024-12-02 22:43] VITALS: BP 133/91; PULSE 78; RESP 18; TEMP 98; O2SAT 96
[2024-12-02 22:44] VITALS: PULSE 104
[2024-12-02 22:56] VITALS: BP 133/91; PULSE 78; RESP 18; TEMP 98.1; O2SAT 96
[2024-12-03] VITALS (8 sets, daily range): BP systolic 110–132; BP diastolic 78–93; PULSE 63–113; RESP 16–18; TEMP 97.3–97.6; O2SAT 92–98
[2024-12-03 07:16] LABS: Hematocrit 40.4 % (41.0-53.0); Hemoglobin 13.8 g/dL (13.5-17.5); Mean Corpuscular Hemoglobin 33.3 pg (28.0-32.0); Mean Corpuscular Volume 97.9 fL (80.0-100.0); Nucleated Red Blood Cells % 0.1 %
[2024-12-03 07:32] LABS: INR 2.87 (0.9-1.15); Prothrombin Time 27.4 sec (9.3-11.8)
[2024-12-03 07:39] LABS: Alanine Aminotransferase 37 U/L (7-40); Albumin 3.9 g/dL (3.2-4.8); Alkaline Phosphatase 89 U/L (46-116); Anion Gap 14 (5-15); BUN/Creatinine Ratio 13.3 (10.0-20.0); Bilirubin, Total 1.3 mg/dL (0.2-1.0); Blood Urea Nitrogen 12 mg/dL (9-23); Calcium 9.1 mg/dL (8.7-10.4); Carbon Dioxide 22 mmol/L (20-31); Chloride 105 mmol/L (98-107); Glucose 82 mg/dL (74-106); Potassium 3.6 mmol/L (3.5-5.1); Sodium 141 mmol/L (136-145); Total Protein 6.1 g/dL (5.7-8.2)
[2024-12-03 08:04] LABS: Magnesium 1.9 mg/dL (1.6-2.6); Triglycerides 68.0 mg/dL (< 150)
[2024-12-03 08:06] LABS: Cholesterol 108.0 mg/dL (< 200); HDL Cholesterol 46.0 mg/dL (40-59)
[2024-12-03 08:19] LABS: Amphetamine Screen, Urine Neg (NEGATIVE); Barbiturate Scree,Urine Neg (NEGATIVE); Benzodiazephine Screen, Urine Neg (NEGATIVE); Opiate Scree,Urine Neg (NEGATIVE); Phencyclidine Screen, Urine Neg (NEGATIVE)
[2024-12-03 08:20] LABS: Cannabinoid Screen, Urine Neg (NEGATIVE); Cocaine Screen, Urine Neg (NEGATIVE)
[2024-12-03] MEDS: METOPROLOL TARTRATE 25 MG TAB PO SCH (09:35)
[2024-12-03] MEDS: PANTOPRAZOLE 40 MG TAB PO SCH (09:35)
[2024-12-03] MEDS: EMPAGLIFLOZIN 10 MG TAB PO SCH (09:36)
[2024-12-03] MEDS ORDERED: PATIENTS OWN MEDICATION (Esomeprazole Magnesium Trihydr (Nexium) 1 CAP) PO SCH (10:00)
[2024-12-03] MEDS: ATORVASTATIN 20 MG TAB PO SCH (10:00)
--- NOTE | 2024-12-03 10:02 | DVHINCON2 ---
Date Seen: Dec 03, 2024 Referring Physician MD Guzman Reason for Consultation AFib RVR History of Present Illness This is a 78-year-old male patient who presents to the emergency room with chief complaint of shortness of breath and dizziness for two days. The patient was brought to the emergency room for further evaluation. Initial twelve lead electrocardiogram reveals atrial fibrillation with uncontrolled rate and right bundle branch block. Initial troponin level of 12ng/L with flat trend thereafter. BNP level of 965.23pg/mL. Significant past medical history includes coronary artery disease status post double-vessel CABG in 2016, congestive heart failure, atrial fibrillation (on warfarin therapy), presence of left atrial appendage clip, hypertension, dyslipidemia, gout, and alcohol use. The patient follows up with [facility] in the outpatient setting. He reports an upcoming appointment on January 26, 2025. Patient reports medication compliance. He does admit that he drinks approximately two glasses of wine per day as well as two mixed cocktail drinks per day ultimately four alcoholic drinks per day. Past Medical History Past medical history reviewed. No other significant than mentioned above. Past Surgical History Double-vessel CABG in 2016 AtriClip in 2016 Family History Family history reviewed. Social History Patient has approximately four alcoholic drinks per day including two glasses of wine in two mixed cocktails Patient denies any illicit drug use Denies any tobacco use Allergies: Coded Allergies: No Known Drug Allergy (Verified Allergy, Unknown, 01/13/21) Home Meds Reported Medications Cholecalciferol (VITAMIN D3) 2,000 Unit Tab, 50 MCG PO EOD, TAB 12/02/24 Multiple Vitamin (Mvi Tab) 1 Tab Tb, 1 TAB PO DAILY, TAB 12/02/24 Warfarin Sodium (Warfarin Sodium) 5 Mg Tab, 5 MG PO DAILY for 30 Days, MG 12/02/24 Empagliflozin (Jardiance) 10 Mg Tab, 10 MG PO DAILY, TAB 12/02/24 Ezetimibe (Zetia) 10 Mg Tab, 1 TAB PO DAILY, #30 TAB 5 Refills 12/02/24 Esomeprazole Magnesium Trihydr (Nexium) 40 Mg Cap, 1 CAP PO DAILY, #30 CAP 5 Refills 12/02/24 Sacubitril-Valsartan (Entresto 24-26 mg) 1 Tab Tab, 1 TAB PO BID, TAB 12/02/24 Carvedilol (Carvedilol) 6.25 Mg Tab, 6.25 MG PO BID for 30 Days, MG 12/02/24 Atorvastatin Calcium (ATORVASTATIN CALCIUM) 40 Mg Tab, 1 TAB PO DAILY, #30 TAB 5 Refills 12/02/24 Allopurinol (Allopurinol) 300 Mg Tab, 300 MG PO EOD for 30 Days, MG 12/02/24 Home Meds Medications Current Medications Current Medications Medications (Trade) Dose Ordered Sig/Nora Route PRN Reason Start Time Stop Time Status Last Admin Amiodarone HCL/ Dextrose 200 ml @ 16.66 mls/ hr Q12H IV 12/02/24 15:50 12/03/24 04:00 Acetaminophen/ Hydrocodone Bitart ([place] 5/325MG Tab) 1 tab Q4HP PRN PO MODERATE PAIN (4-6 PAIN SCALE) 12/02/24 16:15 Ondansetron HCl (Zofran) 4 mg Q4HP PRN IV NAUSEA / VOMITING 12/02/24 16:15 Acetaminophen (Tylenol Tablet) 650 mg Q6HP PRN PO PAIN SCALE 1-3 OR TEMP>100.4 12/02/24 16:15 Empaglifozin (Jardiance) 10 mg DAILY PO 12/03/24 10:00 12/03/24 09:36 Sacubitril/ Valsartan (Entresto 24-26 Mg tab) 1 tab BID PO 12/02/24 22:00 12/03/24 09:34 Warfarin Sodium (Coumadin) 5 mg DAILY PO 12/03/24 10:00 12/02/24 17:31 DC Allopurinol (Zyloprim) 300 mg EOD PO 12/04/24 10:00 Atorvastatin Calcium (Lipitor) 40 mg HS PO 12/03/24 10:00 Patient Own Medication 1 cap DAILY PO 12/03/24 10:00 12/02/24 16:58 DC Metoprolol Tartrate (Lopressor Tablet) 25 mg BID PO 12/03/24 10:00 12/03/24 09:35 Warfarin Sodium (Coumadin Per Rx Protocol) -Hazardous Drug -DO NOT CRUSH OR ... PER PHARMACY PO 12/02/24 17:00 Pantoprazole Sodium (Protonix Tablet) 40 mg DAILY PO 12/03/24 10:00 12/03/24 09:35 Review of Systems Constitutional: No symptom reported Ears, Nose, & Throat: No symptom reported Eyes: No symptom reported Neurological: Dizziness Pulmonary/Respiratory: Shortness of breath Cardiovascular: No symptom reported Gastrointestinal: No symptom reported Genitourinary: No symptom reported Musculoskeletal: No symptom reported Skin: No symptom reported Psychiatric: No symptom reported Endocrine: No symptom reported Hematologic/Lymphatic: No symptom reported Vital Signs Vital Signs Date Time Temp Pulse Resp B/P (MAP) Pulse Ox O2 Delivery O2 Flow Rate FiO2 12/03/24 09:35 83 121/89 12/03/24 09:00 97.4 18 97 97.4 12/03/24 08:00 Nasal Cannula* 3 32 Physical Exam General Appearance: Cooperative. Well-developed. Well-nourished. No acute distress. Pulmonary/Respiratory: Clear, bilateral breaths sounds. Cardiovascular/Chest: Irregularly irregular and rhythm. Peripheral Pulses: 2+ Radial (R). 2+ Radial (L). 2+ Pedal (R). 2+ Pedal (L) Abdominal Exam: Normal bowel sounds. Soft, non-tender. Ankle Exam: Negative ankle edema Lower extremities: Negative lower extremity edema Neuro/Mental Status: A/OX4, coherent. Thoughts/Psych: Normal thought pattern. Appropriate mood and affect. Good judgment and insight. Appearance: No acute distress. Skin Exam: Normal inspection. Normal color. Warm and dry. Labs/Diagnostic Data Labs Test 12/03/24 05:33 12/02/24 12:10 12/02/24 12:04 12/02/24 09:17 Range/Units White Blood Count 7.7 4.4-10.8 10^3/uL Red Blood Count 4.13 L 4.5-5.90 10^6/uL Hemoglobin 13.8 13.5-17.5 g/dL Hematocrit 40.4 L 41.0-53.0 % Mean Corpuscular Volume 97.9 80.0-100.0 fL Mean Corpuscular Hemoglobin 33.3 H 28.0-32.0 pg Mean Corpuscular Hemoglobin Concent 34.0 32.0-36.0 g/dL Red Cell Distribution Width 13.9 11.8-14.3 % Platelet Count 138 L 140-450 10^3/uL Mean Platelet Volume 9.9 6.9-10.8 fL Neutrophils (%) (Auto) 59.0 37.0-80.0 % Lymphocytes (%) (Auto) 29.7 10.0-50.0 % Monocytes (%) (Auto) 9.8 0.0-12.0 % Eosinophils (%) (Auto) 0.9 0.0-7.0 % Basophils (%) (Auto) 0.6 0.0-2.0 % Neutrophils # (Auto) 4.5 1.6-8.6 10 ^3/uL Lymphocytes # (Auto) 2.3 0.4-5.4 10 ^3/uL Monocytes # (Auto) 0.8 0-1.3 10 ^3/uL Eosinophils # (Auto) 0.1 0-0.8 10 ^3/uL Basophils # (Auto) 0 0-0.2 10 ^3/uL Nucleated Red Blood Cells 0.1 % Prothrombin Time 27.4 H 9.3-11.8 sec Prothrombin Time INR 2.87 H 0.9-1.15 Sodium Level 141 136-145 mmol/L Potassium Level 3.6 3.5-5.1 mmol/L Chloride Level 105 98-107 mmol/L Carbon Dioxide Level 22 20-31 mmol/L Anion Gap 14 5-15 Blood Urea Nitrogen 12 9-23 mg/dL Creatinine 0.90 0.700-1.30 mg/dL Glomerular Filtration Rate Calc 89 >90 mL/min BUN/Creatinine Ratio 13.3 10.0-20.0 Serum Glucose 82 74-106 mg/dL Calcium Level 9.1 8.7-10.4 mg/dL Magnesium Level 1.9 1.6-2.6 mg/dL Total Bilirubin 1.3 H 0.2-1.0 mg/dL Aspartate Amino Transferase (AST) 33 13-40 U/L Alanine Aminotransferase (ALT) 37 7-40 U/L Alkaline Phosphatase 89 46-116 U/L Total Protein 6.1 5.7-8.2 g/dL Albumin 3.9 3.2-4.8 g/dL Triglycerides Level 68 < 150 mg/dL Cholesterol Level 108 < 200 mg/dL LDL Cholesterol 42 < 100 mg/dL HDL Cholesterol 46 40-59 mg/dL Thyroid Stimulating Hormone (TSH) 3.77 0.55-4.78 uIU/mL Urine Color Yellow Yellow Urine Clarity Clear Clear Urine pH 5.0 5.0-9.0 Urine Specific [place] 1.030 1.001-1.035 Urine Protein Negative Negative Urine Ketones 1+ H Negative Urine Blood Negative Negative /uL Urine Nitrite Negative Negative Urine Bilirubin Negative Negative Urine Urobilinogen Normal Negative mg/dL Urine Leukocyte Esterase Negative Negative /uL Urine RBC <1 0 - 3 /hpf Urine Microscopic WBC 1 0-3 /HPF Urine Squamous Epithelial Cells None seen <5 /hpf Urine Bacteria None seen None Seen /hpf Urine Glucose 4+ H Normal mg/dL Urine Opiates Screen Neg NEGATIVE Urine Fentanyl Screen Neg NEGATIVE Urine Barbiturates Screen Neg NEGATIVE Urine Phencyclidine Screen Neg NEGATIVE Urine Amphetamines Screen Neg NEGATIVE Urine Benzodiazepines Screen Neg NEGATIVE Urine Cocaine Screen Neg NEGATIVE Urine Cannabinoids Screen Neg NEGATIVE Troponin I High Sensitivity 15 </=54 ng/L Hemoglobin A1c 5.2 <5.7 % A1C B-Type Natriuretic Peptide 965.23 0-100 pg/mL Assessment Atrial fibrillation with rapid ventricular response (on warfarin therapy) Presence of left atrial appendage clip Severe coronary artery disease status post double-vessel CABG in 2016 Acute on chronic HFrEF, NYHA class III Hypertension Dyslipidemia Alcohol use Plan/Recommendation We will continue with the following plan/recommendations (Dr. Keenan): * Transthoracic echocardiogram to evaluate cardiac function * Previous transthoracic echocardiogram from 06/23/2024 reveals an EF of 25% (under different ) * Continue guideline directed medical therapy for CHF as tolerated * Strict intake and output, daily weights, maintain fluid restriction * Preload and afterload reduction * [id number] VASc score: 5 points, HAS-BLED score: 2 points * Continue with the beta-marci for rate control * Continue Coumadin * Amiodarone drip per protocol * Monitor and replete electrolytes as needed, keep potassium greater than four and magnesium greater than two * Close Cardiac surveillance * Risk factor modifications, counseled * Alcohol use and affects on atrial fibrillation Thank you for allowing us to care for this patient. Please call with any questions or concerns. Critical care time spent: 44 minutes This medical document was created using an electronic medical record system with voice recognition software and computerized dictation system. Although this document has been carefully reviewed, there might still be some phonetic and typographical errors. Occasional wrong-word or ``sound-alike substitutions may have occurred due to the inherent limitations of voice recognition software. These areas are purely typographical due to imperfections of the software programs and do not reflect any compromise in the patient's medical care. Please read the chart carefully and recognize, using context, where these substitutions have occurred. Plan discussed with: Patient, Spouse NYHA Physical activity limitations: Class3(Marked) ordinary (activity causes symtoms) Date of Service: Dec 03, 2024 Billing Provider: ALYSSA STRONG Cardiology Common Codes: [id number] INP/OBS CARE (High) Cardiology Consultation Codes: [id number] CONSULT <45MIN ALYSSA STRONG Dec 03, 2024 10:02
--- NOTE | 2024-12-03 10:59 | DVHPN2 ---
Subjective Patient is seen at bedside today, doing well. Reviewed: H&P Changes from previous H/P or p: No Changes General: Per HPI Cardiovascular: No Chest Pain; Palpitations; No Orthopnea, No Paroxysmal Noc. Dyspnea, No Edema, No Lt Headedness, No Other Respiratory: No Cough, No Dry; Shortness of breath, SOB with excertion; No Wheezing, No Hemoptysis, No Pleuritic Pain, No Sputum, No Other Gastrointestinal: No Nausea, No Vomiting, No Abdominal Pain, No Diarrhea, No Constipation, No Melena, No Hematochezia, No Other Objective Vitals Vital Signs Date Time Temp Pulse Resp B/P (MAP) Pulse Ox O2 Delivery O2 Flow Rate FiO2 12/03/24 09:35 83 121/89 12/03/24 09:00 97.4 18 97 97.4 12/03/24 08:00 Nasal Cannula* 3 32 Intake/Output Intake and Output 12/03/24 07:00 Intake Total 600 ml Output Total 250 ml Balance 350 ml Intake Oral 500 ml IV Total 100 ml Output Urine Total 250 ml # Voids 2 Exam GEN: Healthy appearing, well-developed, NAD. HEENT: NC/AT; MMM. CV: Irregularly irregular, tachycardic LUNGS: Rales up to middle lobes bilaterally, no JVD, ABD: Soft, NT/ND, NBS, no masses or organomegaly. EXT: skin Warm, well perfused. no rashes. No clubbing, cyanosis, or edema. No edema NEURO: Ambulating with no limitations. No focal deficits. Medications Current Medications Medications Dose Ordered Sig/Nora Route Start Time Stop Time Status Last Admin Dose Admin Amiodarone HCL/ Dextrose 200 ml @ 16.66 mls/ hr Q12H IV 12/02/24 15:50 12/03/24 04:00 16.66 MLS/HR Acetaminophen/ Hydrocodone Bitart 1 tab Q4HP PRN PO 12/02/24 16:15 Ondansetron HCl 4 mg Q4HP PRN IV 12/02/24 16:15 Acetaminophen 650 mg Q6HP PRN PO 12/02/24 16:15 Empaglifozin 10 mg DAILY PO 12/03/24 10:00 12/03/24 09:36 10 MG Sacubitril/ Valsartan 1 tab BID PO 12/02/24 22:00 12/03/24 09:34 1 TAB Allopurinol 300 mg EOD PO 12/04/24 10:00 Atorvastatin Calcium 40 mg HS PO 12/03/24 10:00 Metoprolol Tartrate 25 mg BID PO 12/03/24 10:00 12/03/24 09:35 25 MG Warfarin Sodium -Hazardous Drug -DO NOT CRUSH OR ... PER PHARMACY PO 12/02/24 17:00 Pantoprazole Sodium 40 mg DAILY PO 12/03/24 10:00 12/03/24 09:35 40 MG Furosemide 40 mg BIDD IV 12/03/24 11:00 Laboratory Results Laboratory Tests 12/03/24 05:33 Chemistry Test 12/03/24 05:33 Albumin 3.9 g/dL (3.2-4.8) Calcium Level 9.1 mg/dL (8.7-10.4) Magnesium Level 1.9 mg/dL (1.6-2.6) Total Protein 6.1 g/dL (5.7-8.2) Coagulation Test 12/02/24 17:39 12/03/24 05:33 Prothrombin Time 31.7 sec (9.3-11.8) H 27.4 sec (9.3-11.8) H Prothrombin Time INR 3.37 (0.9-1.15) H 2.87 (0.9-1.15) H Lipid panel Test 12/03/24 05:33 Cholesterol Level 108 mg/dL (< 200) HDL Cholesterol 46 mg/dL (40-59) Triglycerides Level 68 mg/dL (< 150) LFT Test 12/03/24 05:33 Alanine Aminotransferase (ALT) 37 U/L (7-40) Alkaline Phosphatase 89 U/L (46-116) Aspartate Amino Transferase (AST) 33 U/L (13-40) Total Bilirubin 1.3 mg/dL (0.2-1.0) H HgA1c, TSH Test 12/03/24 05:33 Thyroid Stimulating Hormone (TSH) 3.77 uIU/mL (0.55-4.78) Urinalysis Test 12/02/24 12:10 Urine Color Yellow (Yellow) Urine Clarity Clear (Clear) Urine pH 5.0 (5.0-9.0) Urine Specific [place] 1.030 (1.001-1.035) Urine Protein Negative (Negative) Urine Ketones 1+ (Negative) H Urine Blood Negative /uL (Negative) Urine Nitrite Negative (Negative) Urine Bilirubin Negative (Negative) Urine Urobilinogen Normal mg/dL (Negative) Urine Leukocyte Esterase Negative /uL (Negative) Urine RBC <1 /hpf (0 - 3) Urine Microscopic WBC 1 /HPF (0-3) Urine Squamous Epithelial Cells None seen /hpf (<5) Urine Bacteria None seen /hpf (None Seen) Urine Glucose 4+ mg/dL (Normal) H Labs and/or images reviewed: Labs reviewed by me, Image(s) reviewed by me Assessment/Plan Assessment/Plan 12/02: Patient here with shortness of breath, BNP elevated, CXR with increased pulmonary artery size concern for vascular congestion,. In ED found to be in AFib RVR, amnio was given. On warfarin for unknown reason mostly warfarin 5 mg,. We will continue amiodarone, start Lasix and diurese, echo pending 12/03: Patient still has rales, AFib RVR better controlled since metoprolol started with amnio as well, rate 90s now, cardiology evaluating this morning pending recommendations. Echo pending. Lasix was on ordered, we will order Lasix 40 b.i.d. today. Diagnosis: Acute hypoxic respiratory failure Atrial fibrillation with rapid ventricular rate Acute exacerbation of chronic CHF, diastolic and systolic dysfunction likely Hypertension Hyperlipidemia History of CAD with 2 X CABG Plan: Lasix 40 IV b.i.d. Amiodarone IV status post load Echo cardiogram pending Continue other home medications allopurinol, Lipitor, Coreg, Jardiance, Entresto, warfarin 5 We will use metoprolol tartrate instead of Coreg Warfarin INR per pharmacy Tele Full code Plan discussed with: Patient My Orders Orders - XIMENA HARMON MD Procedure Category Date Status Time Code Status CODE 12/02/24 Transmitted 16:05 Hydrocodone-Acet PHA 12/02/24 In Process 5/325mg Tab ([place] 16:15 Ondansetron Hcl PHA 12/02/24 In Process (Zofran) 16:15 Cardiac DIET 12/02/24 Transmitted Diet-2gna,Lofat,Lochol Dinner Acetaminophen Tablet PHA 12/02/24 In Process (Tylenol Tablet) 16:15 Bedrest With Bathroom BLANCHE 12/02/24 In Process Privileg 16:05 Empagliflozin PHA 12/03/24 In Process (Jardiance) 10:00 Sacubitril-Valsartan PHA 12/02/24 In Process (Entresto 24-26 Mg 22:00 Allopurinol (Zyloprim) PHA 12/04/24 In Process 10:00 Atorvastatin (Lipitor) PHA 12/03/24 In Process 10:00 * Cardiology Consult CONS 12/02/24 Transmitted 16:46 Warfarin Per Rx PHA 12/02/24 In Process Protocol (Coumadin 17:00 Metoprolol Tartrate PHA 12/03/24 In Process Tablet (Lopressor Ta 10:00 Pantoprazole Tablet PHA 12/03/24 In Process (Protonix Tablet) 10:00 Admit ADMIT 12/02/24 Transmitted 18:22 Furosemide Injection PHA 12/03/24 In Process (Lasix Injection) 11:00 Date of Service: Dec 03, 2024 Billing Provider: XIMENA HARMON MD Common Visit Codes: [id number] INP/OBS CARE(HIGH) XIMENA HARMON MD Dec 03, 2024 10:58
[2024-12-03] MEDS: FUROSEMIDE 40 MG/4 ML VIAL IV SCH (11:00)
[2024-12-03] MEDS: WARFARIN SODIUM 5 MG TAB PO ONE (17:33)
[2024-12-03] MEDS: CARVEDILOL 3.125 MG TAB PO SCH (21:40)
[2024-12-04] VITALS (9 sets, daily range): BP systolic 98–128; BP diastolic 65–89; PULSE 67–107; RESP 15–20; TEMP 97.6–98.6; O2SAT 90–98
[2024-12-04 07:54] LABS: Hematocrit 43.7 % (41.0-53.0); Hemoglobin 15.1 g/dL (13.5-17.5); Mean Corpuscular Hemoglobin 33.8 pg (28.0-32.0); Mean Corpuscular Volume 98.0 fL (80.0-100.0); Nucleated Red Blood Cells % 0.2 %
[2024-12-04 07:57] LABS: INR 2.47 (0.9-1.15); Partial Thromboplastin Time 37.9 SEC (24.5-34.5); Prothrombin Time 23.9 sec (9.3-11.8)
[2024-12-04 08:12] LABS: Alanine Aminotransferase 39 U/L (7-40); Albumin 4.4 g/dL (3.2-4.8); Alkaline Phosphatase 96 U/L (46-116); Anion Gap 16 (5-15); BUN/Creatinine Ratio 10.7 (10.0-20.0); Blood Urea Nitrogen 11 mg/dL (9-23); Calcium 9.5 mg/dL (8.7-10.4); Carbon Dioxide 23 mmol/L (20-31); Chloride 102 mmol/L (98-107); Glucose 101 mg/dL (74-106); Potassium 3.6 mmol/L (3.5-5.1); Sodium 141 mmol/L (136-145); Total Protein 6.9 g/dL (5.7-8.2)
[2024-12-04 08:14] LABS: Bilirubin, Total 1.7 mg/dL (0.2-1.0)
[2024-12-04] MEDS ORDERED: ALLOPURINOL 300 MG TAB PO SCH (10:00)
[2024-12-04] MEDS: SPIRONOLACTONE 25 MG TAB PO SCH (11:27)
[2024-12-04] MEDS: ALLOPURINOL 100 MG TAB PO ONE (11:27)
--- NOTE | 2024-12-04 12:25 | DVHPN2 ---
Subjective Patient is seen at bedside today, doing well. Reviewed: H&P Changes from previous H/P or p: No Changes General: Per HPI Cardiovascular: No Chest Pain; Palpitations; No Orthopnea, No Paroxysmal Noc. Dyspnea, No Edema, No Lt Headedness, No Other Respiratory: No Cough, No Dry; Shortness of breath, SOB with excertion; No Wheezing, No Hemoptysis, No Pleuritic Pain, No Sputum, No Other Gastrointestinal: No Nausea, No Vomiting, No Abdominal Pain, No Diarrhea, No Constipation, No Melena, No Hematochezia, No Other Objective Vitals Vital Signs Date Time Temp Pulse Resp B/P (MAP) Pulse Ox O2 Delivery O2 Flow Rate FiO2 12/04/24 11:28 67 116/82 12/04/24 09:00 98.3 15 93 98.3 12/03/24 20:00 Nasal Cannula* 2 28 Intake/Output Intake and Output 12/04/24 07:00 Intake Total 2633.92 ml Output Total 1300 ml Balance 1333.92 ml Intake Oral 2440 ml IV Total 193.92 ml Output Urine Total 1300 ml # Voids 4 # Bowel Movements 1 Exam GEN: Healthy appearing, well-developed, NAD. HEENT: NC/AT; MMM. CV: Irregularly irregular, tachycardic LUNGS: Rales up to middle lobes bilaterally, no JVD, ABD: Soft, NT/ND, NBS, no masses or organomegaly. EXT: skin Warm, well perfused. no rashes. No clubbing, cyanosis, or edema. No edema NEURO: Ambulating with no limitations. No focal deficits. Medications Current Medications Medications Dose Ordered Sig/Nora Route Start Time Stop Time Status Last Admin Dose Admin Amiodarone HCL/ Dextrose 200 ml @ 16.66 mls/ hr Q12H IV 12/02/24 15:50 12/04/24 03:55 16.66 MLS/HR Acetaminophen/ Hydrocodone Bitart 1 tab Q4HP PRN PO 12/02/24 16:15 Ondansetron HCl 4 mg Q4HP PRN IV 12/02/24 16:15 Acetaminophen 650 mg Q6HP PRN PO 12/02/24 16:15 Empaglifozin 10 mg DAILY PO 12/03/24 10:00 12/04/24 09:55 10 MG Sacubitril/ Valsartan 1 tab BID PO 12/02/24 22:00 12/04/24 09:55 1 TAB Atorvastatin Calcium 40 mg HS PO 12/03/24 10:00 12/03/24 21:02 40 MG Warfarin Sodium -Hazardous Drug -DO NOT CRUSH OR ... PER PHARMACY PO 12/02/24 17:00 Pantoprazole Sodium 40 mg DAILY PO 12/03/24 10:00 12/04/24 09:55 40 MG Furosemide 40 mg BIDD IV 12/03/24 11:00 12/04/24 05:45 40 MG Spironolactone 25 mg DAILY PO 12/04/24 10:00 12/04/24 11:27 25 MG Carvedilol 6.25 mg Q12HR PO 12/03/24 22:00 12/04/24 11:28 6.25 MG Allopurinol 300 mg EOD PO 12/06/24 10:00 Laboratory Results Laboratory Tests 12/04/24 06:55 Chemistry Test 12/04/24 06:55 Albumin 4.4 g/dL (3.2-4.8) Calcium Level 9.5 mg/dL (8.7-10.4) Total Protein 6.9 g/dL (5.7-8.2) Coagulation Test 12/04/24 06:55 Prothrombin Time 23.9 sec (9.3-11.8) H Prothrombin Time INR 2.47 (0.9-1.15) H Activated Partial Thromboplast Time 37.9 SEC (24.5-34.5) H LFT Test 12/04/24 06:55 Alanine Aminotransferase (ALT) 39 U/L (7-40) Alkaline Phosphatase 96 U/L (46-116) Aspartate Amino Transferase (AST) 37 U/L (13-40) Total Bilirubin 1.7 mg/dL (0.2-1.0) H Urinalysis Test 12/02/24 12:10 Urine Color Yellow (Yellow) Urine Clarity Clear (Clear) Urine pH 5.0 (5.0-9.0) Urine Specific [place] 1.030 (1.001-1.035) Urine Protein Negative (Negative) Urine Ketones 1+ (Negative) H Urine Blood Negative /uL (Negative) Urine Nitrite Negative (Negative) Urine Bilirubin Negative (Negative) Urine Urobilinogen Normal mg/dL (Negative) Urine Leukocyte Esterase Negative /uL (Negative) Urine RBC <1 /hpf (0 - 3) Urine Microscopic WBC 1 /HPF (0-3) Urine Squamous Epithelial Cells None seen /hpf (<5) Urine Bacteria None seen /hpf (None Seen) Urine Glucose 4+ mg/dL (Normal) H Labs and/or images reviewed: Labs reviewed by me, Image(s) reviewed by me Assessment/Plan Assessment/Plan 12/02: Patient here with shortness of breath, BNP elevated, CXR with increased pulmonary artery size concern for vascular congestion,. In ED found to be in AFib RVR, amnio was given. On warfarin for unknown reason mostly warfarin 5 mg,. We will continue amiodarone, start Lasix and diurese, echo pending 12/03: Patient still has rales, AFib RVR better controlled since metoprolol started with amnio as well, rate 90s now, cardiology evaluating this morning pending recommendations. Echo pending. Lasix was on ordered, we will order Lasix 40 b.i.d. today. 12/04: Patient is still has rales lower lobes bilateral mild increase in T bili, mildly increase creatinine, we will continue Lasix. We will reach out to Cardiology whether continuation of amiodarone as needed. Currently patient is irregularly irregular on tele AFib rate of 90s. Patient woke up last night short of breath with domes feeling,? KIMBERLEE,. We could try BiPAP, patient presented with oxygen he will think about it and let nurse know. Patient is still on 3 L nasal cannula oxygen, continuation of Lasix and BiPAP might help further decreased need of oxygen. Decrease Lasix to 40 once daily. We will re- evaluate tomorrow. Diagnosis: Acute hypoxic respiratory failure Atrial fibrillation with rapid ventricular rate Acute exacerbation of chronic CHF, diastolic and systolic dysfunction likely Hypertension Hyperlipidemia History of CAD with 2 X CABG Plan: Lasix 40 IV b.i.d. Amiodarone IV status post load Echo cardiogram pending Continue other home medications allopurinol, Lipitor, Coreg, Jardiance, Entresto, warfarin 5 We will use metoprolol tartrate instead of Coreg Warfarin INR per pharmacy Tele Full code Plan discussed with: Patient My Orders Orders - XIMENA HARMON MD Procedure Category Date Status Time PTPTT LAB 12/05/24 Verified 04:00 Allopurinol Tablet PHA 12/06/24 In Process (Zyloprim Tablet) 10:00 Coumadin Per Pharmacy [facility] 12/04/24 In Process Protcol 17:00 Warfarin Sodium PHA 12/04/24 Logged (Coumadin) 17:00 Date of Service: Dec 04, 2024 Billing Provider: XIMENA HARMON MD Common Visit Codes: [id number] INP/OBS CARE(HIGH) XIMENA HARMON MD Dec 04, 2024 12:25
--- NOTE | 2024-12-04 13:12 | DVHSR ---
APPROVED REPORT EXAM: Two-dimensional and M-mode echocardiogram with Doppler and color Doppler. Blood Pressure: 132/89 mmHg INDICATION HF, SOB RISK FACTORS Height: 70, Weight: 203 DIMENSIONS LVDd5.0 (3.8-5.7cm)LA (2D)5.2 (1.9-4.0cm)Aortic Root4.7 (2.0-3.7cm) LVDs4.7 (2.5-4.0cm)LA (MM) (1.9-4.0cm)Aortic Cusp Exc1.5 (1.5-2.0cm) EF (%) 15.0 (55-70%)Rt. Atrium5.3 (1.9-4.0cm)Asc. Aorta cm Mitral Valve MitralMitral Stenosis E wave0.87m/sMV Mean GR.mmHg A wavem/sMV Peak GR.71mmHg E/A ratio0.02D MVAcm2 Aortic Valve Aortic ValveAortic Stenosis V10.71m/Ezra Mean GR.4mmHg V21.28m/Ezra Peak GR.7mmHg LVOT Diameter2.2 (1.8-2.4cm)Doppler AVA2.11cm2 AI P 1/2 Loiz558.85ms Pulmonic Valve V20.75m/s Tricuspid Valve TR Velocity2.62m/s [id number] Other Information Technically limited study due to body habitus and patient rhythm. Conclusion lvef <20% dilated LV RV dysfunction biatiral enlargement moderate mitral regurg dilated IVC
--- NOTE | 2024-12-04 15:23 | DVHPN2 ---
Consult Progress Note Date Seen: Dec 04, 2024 Subjective Review of Systems: CVS:Normal, RESPIRATORY:Normal, NEURO:Normal Objective vital signs Vital Sign Date Time Temp Pulse Resp B/P (MAP) Pulse Ox O2 Delivery O2 Flow Rate FiO2 12/04/24 12:30 107 128/89 12/04/24 09:00 98.3 15 93 98.3 12/03/24 20:00 Nasal Cannula* 2 28 Total Intake and Output 12/03/24 12/03/24 12/04/24 15:00 23:00 07:00 Intake Total 720 ml 1513.92 ml 400 ml Output Total 1300 ml Balance 720 ml 1513.92 ml -900 ml medications Current Medications Medications Dose Ordered Sig/Nora Route Start Time Stop Time Status Last Admin Dose Admin Amiodarone HCL/ Dextrose 200 ml @ 16.66 mls/ hr Q12H IV 12/02/24 15:50 12/04/24 14:33 16.66 MLS/HR Acetaminophen/ Hydrocodone Bitart 1 tab Q4HP PRN PO 12/02/24 16:15 Ondansetron HCl 4 mg Q4HP PRN IV 12/02/24 16:15 Acetaminophen 650 mg Q6HP PRN PO 12/02/24 16:15 Empaglifozin 10 mg DAILY PO 12/03/24 10:00 12/04/24 09:55 10 MG Sacubitril/ Valsartan 1 tab BID PO 12/02/24 22:00 12/04/24 09:55 1 TAB Atorvastatin Calcium 40 mg HS PO 12/03/24 10:00 12/03/24 21:02 40 MG Warfarin Sodium -Hazardous Drug -DO NOT CRUSH OR ... PER PHARMACY PO 12/02/24 17:00 Pantoprazole Sodium 40 mg DAILY PO 12/03/24 10:00 12/04/24 09:55 40 MG Spironolactone 25 mg DAILY PO 12/04/24 10:00 12/04/24 11:27 25 MG Carvedilol 6.25 mg Q12HR PO 12/03/24 22:00 12/04/24 11:28 6.25 MG Allopurinol 300 mg EOD PO 12/06/24 10:00 Furosemide 40 mg DAILY IV 12/05/24 10:00 UNV Examination: LUNGS:Normal, CVS:Abnormal (A-fib with intermittent RVR on amiodarone drip), NEURO:Normal laboratory and microbiology Laboratory Tests 12/04/24 06:55 Test 12/04/24 06:55 Range/Units Serum Glucose 101 74-106 mg/dL Problem List/Assessment/Plan Problem List/Assessment/Plan Likely persistent/long-standing atrial fibrillation with intermittent RVR, Stage IIIb (on warfarin therapy) Severe coronary artery disease status post double-vessel CABG in 2016 Acute on chronic decompensated HFrEF, NYHA class IV Status post left atrial appendage clip Hypertension Dyslipidemia Alcohol use Plan/Recommendation (Dr. Keenan) * Transthoracic echocardiogram revealed a LVEF of <20% * Dilated LV. RV dysfunction. Biatrial enlargement. Moderate MR. Dilated IVC * Continue guideline directed medical therapy for CHF as tolerated * Preload and afterload reduction * Strict intake and output, daily weights, maintain fluid restriction * Single-antiplatelet therapy and lipid lowering agent * Hx of ELOISE closure, consider discontinuation of warfarin therapy * [id number] VASc score: 5 points, HAS-BLED score: 2 points * Rate control, beta-marci and loading dose of digoxin with maintenance qd * Stop antiarrhythmic therapy given likely persistent a-fib * Replete electrolytes as needed, K>4 and Mg>2 * Close Cardiac surveillance. Monitor ECG changes closely * Risk factor modifications, counseled * Alcohol use and affects on atrial fibrillation The patient complains of PATEL and increased fatigue with activity. Given severe diminished LV function compared to TTEs from 2022, the patient has been scheduled for a coronary angiogram with left cardiac catheterization with Dr. Keenan on 12/06/2024. All risks and benefits of the procedure were discussed with the patient who agrees to proceed with intervention. All questions answered. Thank you for allowing us to care for this patient. Please call with any questions or concerns. Critical care time spent: 30 min. This medical document was created using an electronic medical record system with voice recognition software and computerized dictation system. Although this document has been carefully reviewed, there might still be some phonetic and typographical errors. Occasional wrong-word or ``sound-alike substitutions may have occurred due to the inherent limitations of voice recognition software. These areas are purely typographical due to imperfections of the software programs and do not reflect any compromise in the patient's medical care. Please read the chart carefully and recognize, using context, where these substitutions have occurred. Plan discussed with: Patient, Other Date of Service: Dec 04, 2024 Billing Provider: LYNDA FENG Cardiology Common Codes: [id number] CARE 30-74 MIN LYNDA FENG Dec 04, 2024 15:23
[2024-12-04] MEDS: MAGNESIUM SULFATE 1GM/100ML 100 ML IV ONE ×2 (15:58→16:17)
[2024-12-04] MEDS: POTASSIUM CHL 20 Meq TABLET PO ONE ×2 (15:59→16:18)
[2024-12-04] MEDS: DIGOXIN (250MCG/ML) 2 ML AMPULE ONE (16:00)
[2024-12-04] MEDS: CLOPIDOGREL BISULFATE 75 MG TAB ONE (16:02)
[2024-12-04] MEDS: CLOPIDOGREL BISULFATE 75 MG TAB PO ONE (16:19)
[2024-12-04] MEDS: DIGOXIN (250MCG/ML) 2 ML AMPULE IV ONE (16:23)
[2024-12-04] MEDS ORDERED: WARFARIN SODIUM 2.5 MG TAB PO ONE (17:00)
[2024-12-04] MEDS ORDERED: WARFARIN SODIUM 5 MG TAB PO ONE (17:00)
[2024-12-04] MEDS: MELATONIN 5 MG TAB PO PRN (22:34)
[2024-12-04] MEDS: HYDROcodone-ACET 5/325MG TAB PO PRN (22:36)
[2024-12-05] VITALS (8 sets, daily range): BP systolic 95–143; BP diastolic 60–88; PULSE 67–102; RESP 17–18; TEMP 97.4–98.6; O2SAT 92–97
[2024-12-05] MEDS: EZETIMIBE 10 MG TAB PO SCH (09:39)
[2024-12-05] MEDS: DIGOXIN 0.125 MG TAB PO SCH (09:40)
[2024-12-05] MEDS: CLOPIDOGREL BISULFATE 75 MG TAB PO SCH (09:40)
[2024-12-05] MEDS: FUROSEMIDE 40 MG/4 ML VIAL IV SCH (09:43)
--- NOTE | 2024-12-05 09:48 | DVHPN2 ---
Consult Progress Note Date Seen: Dec 05, 2024 Subjective Review of Systems: CVS:Normal, RESPIRATORY:Normal, NEURO:Normal Objective vital signs Vital Sign Date Time Temp Pulse Resp B/P (MAP) Pulse Ox O2 Delivery O2 Flow Rate FiO2 12/05/24 05:00 98.6 73 18 122/86 (98) 94 98.6 12/04/24 20:00 Nasal Cannula* 2 28 Total Intake and Output 12/04/24 12/04/24 12/05/24 15:00 23:00 07:00 Intake Total 833 ml 500 ml Output Total 750 ml 800 ml Balance 83 ml -300 ml medications Current Medications Medications Dose Ordered Sig/Nora Route Start Time Stop Time Status Last Admin Dose Admin Acetaminophen/ Hydrocodone Bitart 1 tab Q4HP PRN PO 12/02/24 16:15 12/04/24 22:36 1 TAB Ondansetron HCl 4 mg Q4HP PRN IV 12/02/24 16:15 Acetaminophen 650 mg Q6HP PRN PO 12/02/24 16:15 Empaglifozin 10 mg DAILY PO 12/03/24 10:00 12/04/24 09:55 10 MG Sacubitril/ Valsartan 1 tab BID PO 12/02/24 22:00 12/04/24 22:32 1 TAB Atorvastatin Calcium 40 mg HS PO 12/03/24 10:00 12/04/24 22:32 40 MG Pantoprazole Sodium 40 mg DAILY PO 12/03/24 10:00 12/04/24 09:55 40 MG Spironolactone 25 mg DAILY PO 12/04/24 10:00 12/04/24 11:27 25 MG Carvedilol 6.25 mg Q12HR PO 12/03/24 22:00 12/04/24 22:33 6.25 MG Allopurinol 300 mg EOD PO 12/06/24 10:00 Furosemide 40 mg DAILY IV 12/05/24 10:00 Digoxin 0.125 mg DAILY PO 12/05/24 10:00 Clopidogrel Bisulfate 75 mg DAILY PO 12/05/24 10:00 EZETIMIBE 10 mg DAILY PO 12/05/24 10:00 Melatonin 5 mg HS PRN PO 12/04/24 20:00 12/04/24 22:34 5 MG Examination: LUNGS:Normal, CVS:Abnormal (A-fib with intermittent RVR, < frequent now), NEURO:Normal laboratory and microbiology Laboratory Tests 12/04/24 06:55 Test 12/04/24 06:55 Range/Units Serum Glucose 101 74-106 mg/dL Problem List/Assessment/Plan Problem List/Assessment/Plan Rule out progressive coronary artery disease vs tachycardia induced cardiomyopathy Likely persistent/long-standing atrial fibrillation with intermittent RVR, Stage IIIb (on warfarin therapy) Severe coronary artery disease status post double-vessel CABG in 2016 Acute on chronic decompensated HFrEF, NYHA class IV Status post left atrial appendage clip Hypertension Dyslipidemia Alcohol use Plan/Recommendation (Dr. Keenan) * Transthoracic echocardiogram revealed a LVEF of <20% * Dilated LV. RV dysfunction. Biatrial enlargement. Moderate MR. Dilated IVC * Continue guideline directed medical therapy for CHF as tolerated * Preload and afterload reduction * Strict I&Os, daily weights, maintain fluid restriction * Single-antiplatelet therapy and lipid lowering agent * Hx of ELOISE closure, consider discontinuation of warfarin therapy * [id number] VASc score: 5 points, HAS-BLED score: 2 points * Rate control, beta-marci and digoxin therapy * Stop antiarrhythmic therapy given likely persistent a-fib * Replete electrolytes as needed, K>4 and Mg>2 * Close Cardiac surveillance. Monitor ECG changes closely * Risk factor modifications, counseled * Alcohol use and affects on atrial fibrillation The patient complains of PATEL and increased fatigue with activity. Given severe diminished LV function compared to TTEs from 2022, the patient has been scheduled for a coronary angiogram with left cardiac catheterization with Dr. Keenan on 12/06/2024. Thank you for allowing us to care for this patient. Please call with any questions or concerns. This medical document was created using an electronic medical record system with voice recognition software and computerized dictation system. Although this document has been carefully reviewed, there might still be some phonetic and typographical errors. Occasional wrong-word or ``sound-alike substitutions may have occurred due to the inherent limitations of voice recognition software. These areas are purely typographical due to imperfections of the software programs and do not reflect any compromise in the patient's medical care. Please read the chart carefully and recognize, using context, where these substitutions have occurred. Plan discussed with: Patient, Other Date of Service: Dec 05, 2024 Billing Provider: LYNDA FENG [employer] Cardiology Common Codes: [id number] CARE(LYNDA Colindres [employer] Dec 05, 2024 09:48
[2024-12-05 10:49] LABS: Chloride 105 mmol/L (98-107); Potassium 3.9 mmol/L (3.5-5.1); Sodium 143 mmol/L (136-145)
[2024-12-05 10:50] LABS: Anion Gap 10 (5-15); Calcium 9.1 mg/dL (8.7-10.4); Carbon Dioxide 28 mmol/L (20-31)
[2024-12-05 10:54] LABS: Hematocrit 41.1 % (41.0-53.0); Hemoglobin 14.3 g/dL (13.5-17.5); Mean Corpuscular Hemoglobin 33.6 pg (28.0-32.0); Mean Corpuscular Volume 97.0 fL (80.0-100.0); Nucleated Red Blood Cells % 0.2 %
[2024-12-05 10:55] LABS: BUN/Creatinine Ratio 13.8 (10.0-20.0); Blood Urea Nitrogen 11 mg/dL (9-23); Glucose 82 mg/dL (74-106)
--- NOTE | 2024-12-05 12:03 | DVHPN2 ---
Subjective Patient is seen at bedside today, doing well. Reviewed: H&P Changes from previous H/P or p: No Changes General: Per HPI Cardiovascular: No Chest Pain; Palpitations; No Orthopnea, No Paroxysmal Noc. Dyspnea, No Edema, No Lt Headedness, No Other Respiratory: No Cough, No Dry; Shortness of breath, SOB with excertion; No Wheezing, No Hemoptysis, No Pleuritic Pain, No Sputum, No Other Gastrointestinal: No Nausea, No Vomiting, No Abdominal Pain, No Diarrhea, No Constipation, No Melena, No Hematochezia, No Other Objective Vitals Vital Signs Date Time Temp Pulse Resp B/P (MAP) Pulse Ox O2 Delivery O2 Flow Rate FiO2 12/05/24 09:43 143/88 12/05/24 09:42 73 12/05/24 09:00 97.5 18 97 97.5 12/04/24 20:00 Nasal Cannula* 2 28 Intake/Output Intake and Output 12/05/24 07:00 Intake Total 1333 ml Output Total 1550 ml Balance -217 ml Intake Oral 1200 ml IV Total 133 ml Output Urine Total 1550 ml Exam GEN: Healthy appearing, well-developed, NAD. HEENT: NC/AT; MMM. CV: Irregularly irregular, tachycardic LUNGS: Rales up to middle lobes bilaterally, no JVD, ABD: Soft, NT/ND, NBS, no masses or organomegaly. EXT: skin Warm, well perfused. no rashes. No clubbing, cyanosis, or edema. No edema NEURO: Ambulating with no limitations. No focal deficits. Medications Current Medications Medications Dose Ordered Sig/Nora Route Start Time Stop Time Status Last Admin Dose Admin Acetaminophen/ Hydrocodone Bitart 1 tab Q4HP PRN PO 12/02/24 16:15 12/04/24 22:36 1 TAB Ondansetron HCl 4 mg Q4HP PRN IV 12/02/24 16:15 Acetaminophen 650 mg Q6HP PRN PO 12/02/24 16:15 Empaglifozin 10 mg DAILY PO 12/03/24 10:00 12/05/24 09:39 10 MG Sacubitril/ Valsartan 1 tab BID PO 12/02/24 22:00 12/05/24 09:39 1 TAB Atorvastatin Calcium 40 mg HS PO 12/03/24 10:00 12/04/24 22:32 40 MG Pantoprazole Sodium 40 mg DAILY PO 12/03/24 10:00 12/05/24 09:40 40 MG Spironolactone 25 mg DAILY PO 12/04/24 10:00 12/05/24 09:39 25 MG Carvedilol 6.25 mg Q12HR PO 12/03/24 22:00 12/05/24 09:42 6.25 MG Allopurinol 300 mg EOD PO 12/06/24 10:00 Furosemide 40 mg DAILY IV 12/05/24 10:00 12/05/24 09:43 40 MG Digoxin 0.125 mg DAILY PO 12/05/24 10:00 12/05/24 09:40 0.125 MG Clopidogrel Bisulfate 75 mg DAILY PO 12/05/24 10:00 12/05/24 09:40 75 MG EZETIMIBE 10 mg DAILY PO 12/05/24 10:00 12/05/24 09:39 10 MG Melatonin 5 mg HS PRN PO 12/04/24 20:00 12/04/24 22:34 5 MG Laboratory Results Laboratory Tests 12/05/24 07:06 Chemistry Test 12/05/24 07:06 Calcium Level 9.1 mg/dL (8.7-10.4) Magnesium Level 2.1 mg/dL (1.6-2.6) Cardiac Markers Test 12/05/24 07:06 B-Type Natriuretic Peptide 607.82 pg/mL (0-100) Urinalysis Test 12/02/24 12:10 Urine Color Yellow (Yellow) Urine Clarity Clear (Clear) Urine pH 5.0 (5.0-9.0) Urine Specific [place] 1.030 (1.001-1.035) Urine Protein Negative (Negative) Urine Ketones 1+ (Negative) H Urine Blood Negative /uL (Negative) Urine Nitrite Negative (Negative) Urine Bilirubin Negative (Negative) Urine Urobilinogen Normal mg/dL (Negative) Urine Leukocyte Esterase Negative /uL (Negative) Urine RBC <1 /hpf (0 - 3) Urine Microscopic WBC 1 /HPF (0-3) Urine Squamous Epithelial Cells None seen /hpf (<5) Urine Bacteria None seen /hpf (None Seen) Urine Glucose 4+ mg/dL (Normal) H Labs and/or images reviewed: Labs reviewed by me, Image(s) reviewed by me Assessment/Plan Assessment/Plan 78 y.o male with PMHx of AFIB, HTN and HLD, presents to the ED for a chief complaint of SOB that started 4-5 days ago and has progressively worsened. At first, patient only had exertional SOB but now is constant even when resting. He mentions that SOB enables him to sleep, states he tosses and turns and has also been feeling weak as a result of lack of sleep. Additionally, he complains of dizziness linked to BP and AFIB monitored at home. He denies any chest pain, fever, chills, pain. 12/02: Patient here with shortness of breath, BNP elevated, CXR with increased pulmonary artery size concern for vascular congestion,. In ED found to be in AFib RVR, amnio was given. On warfarin for unknown reason mostly warfarin 5 mg,. We will continue amiodarone, start Lasix and diurese, echo pending 12/03: Patient still has rales, AFib RVR better controlled since metoprolol started with amnio as well, rate 90s now, cardiology evaluating this morning pending recommendations. Echo pending. Lasix was on ordered, we will order Lasix 40 b.i.d. today. 12/04: Patient is still has rales lower lobes bilateral mild increase in T bili, mildly increase creatinine, we will continue Lasix. We will reach out to Cardiology whether continuation of amiodarone as needed. Currently patient is irregularly irregular on tele AFib rate of 90s. Patient woke up last night short of breath with domes feeling,? KIMBERLEE,. We could try BiPAP, patient presented with oxygen he will think about it and let nurse know. Patient is still on 3 L nasal cannula oxygen, continuation of Lasix and BiPAP might help further decreased need of oxygen. Decrease Lasix to 40 once daily. We will re- evaluate tomorrow. 12/05: Patient appears euvolemic. EF is low 20%, cardiology wants to do left heart catheterization tomorrow. We will discuss with Cardiology regarding Lasix as patient euvolemic, may need to p.o.. For now we will change Lasix to 20 mg IV daily. Diagnosis: Acute hypoxic respiratory failure Atrial fibrillation with rapid ventricular rate Acute exacerbation of chronic CHF, diastolic and systolic dysfunction likely Hypertension Hyperlipidemia History of CAD with 2 X CABG Plan: Lasix 40 IV b.i.d. Amiodarone IV status post load Echo cardiogram pending Continue other home medications allopurinol, Lipitor, Coreg, Jardiance, Entresto, warfarin 5 We will use metoprolol tartrate instead of Coreg Warfarin INR per pharmacy Tele Full code Plan discussed with: Patient My Orders Orders - XIMENA HARMON MD Procedure Category Date Status Time Furosemide Injection PHA 12/05/24 In Process (Lasix Injection) 10:00 Date of Service: Dec 05, 2024 Billing Provider: XIMENA HARMON MD Common Visit Codes: [id number] INP/OBS CARE(HIGH) XIMENA HARMON MD Dec 05, 2024 12:03
[2024-12-06] VITALS (13 sets, daily range): BP systolic 97–130; BP diastolic 58–93; PULSE 63–91; RESP 15–18; TEMP 97.7–97.9; O2SAT 92–96
[2024-12-06] MEDS: FUROSEMIDE 40 MG/4 ML VIAL ONE (06:59)
[2024-12-06] MEDS: CARVEDILOL 3.125 MG TAB ONE (06:59)
[2024-12-06 07:22] LABS: Chloride 104 mmol/L (98-107); Potassium 3.7 mmol/L (3.5-5.1); Sodium 142 mmol/L (136-145)
[2024-12-06 07:23] LABS: Anion Gap 10 (5-15); Carbon Dioxide 28 mmol/L (20-31)
[2024-12-06 07:24] LABS: Calcium 9.3 mg/dL (8.7-10.4)
[2024-12-06 07:28] LABS: Glucose 95 mg/dL (74-106)
[2024-12-06 07:29] LABS: BUN/Creatinine Ratio 10.4 (10.0-20.0); Blood Urea Nitrogen 10 mg/dL (9-23)
[2024-12-06 07:30] LABS: Hematocrit 43.2 % (41.0-53.0); Hemoglobin 15.1 g/dL (13.5-17.5); INR 1.63 (0.9-1.15); Mean Corpuscular Hemoglobin 33.8 pg (28.0-32.0); Mean Corpuscular Volume 96.9 fL (80.0-100.0); Nucleated Red Blood Cells % 0.1 %; Partial Thromboplastin Time 33.6 SEC (24.5-34.5); Prothrombin Time 16.5 sec (9.3-11.8)
[2024-12-06] MEDS: HEPARIN IN NS 1000Units/500mL 0 ML ONE (07:35)
[2024-12-06] MEDS: IOHEXOL 350 MG/ML 100ML IJ ONE (07:35)
[2024-12-06] MEDS: IODIXANOL 320MG/ML 100ML BTL IV ONE ×2 (09:13→10:42)
[2024-12-06] MEDS: VERAPAMIL 2.5MG/ML INJ 2ML VIAL IV ONE (09:33)
[2024-12-06] MEDS: ANGIOMAX 250 MG VIAL IV ONE (09:33)
[2024-12-06] MEDS: fentaNYL CITRATE 100 MCG/2 ML VL ONE ×2 (09:33→10:52)
[2024-12-06] MEDS: HEPARIN SODIUM (PORCINE) 5000 UNITS/ML 1ML VIAL ONE (09:33)
[2024-12-06] MEDS: SODIUM CHL 0.9% 50 ML ONE (09:34)
[2024-12-06] MEDS: MIDAZOLAM HCL 2MG/2ML 2ml VIAL (1mg/ml) ONE ×2 (09:34→10:52)
[2024-12-06] MEDS: LIDOCAINE 2%HCL (LOCAL ANESTH.) INJ 20ML MDV ONE (09:34)
--- NOTE | 2024-12-06 10:15 | DVHPN2 ---
Subjective Patient is seen at bedside today, doing well. Reviewed: H&P Changes from previous H/P or p: No Changes General: Per HPI Cardiovascular: No Chest Pain; Palpitations; No Orthopnea, No Paroxysmal Noc. Dyspnea, No Edema, No Lt Headedness, No Other Respiratory: No Cough, No Dry; Shortness of breath, SOB with excertion; No Wheezing, No Hemoptysis, No Pleuritic Pain, No Sputum, No Other Gastrointestinal: No Nausea, No Vomiting, No Abdominal Pain, No Diarrhea, No Constipation, No Melena, No Hematochezia, No Other Objective Vitals Vital Signs Date Time Temp Pulse Resp B/P (MAP) Pulse Ox O2 Delivery O2 Flow Rate FiO2 12/06/24 09:14 97.8 78 18 130/93 (105) 93 97.8 12/05/24 20:00 Room Air* 0 21 Intake/Output Intake and Output 12/06/24 07:00 Intake Total 420 ml Balance 420 ml Intake Oral 420 ml # Voids 7 Exam GEN: Healthy appearing, well-developed, NAD. HEENT: NC/AT; MMM. CV: Irregularly irregular, tachycardic LUNGS: Rales up to middle lobes bilaterally, no JVD, ABD: Soft, NT/ND, NBS, no masses or organomegaly. EXT: skin Warm, well perfused. no rashes. No clubbing, cyanosis, or edema. No edema NEURO: Ambulating with no limitations. No focal deficits. Medications Current Medications Medications Dose Ordered Sig/Nora Route Start Time Stop Time Status Last Admin Dose Admin Acetaminophen/ Hydrocodone Bitart 1 tab Q4HP PRN PO 12/02/24 16:15 12/05/24 21:39 1 TAB Ondansetron HCl 4 mg Q4HP PRN IV 12/02/24 16:15 Acetaminophen 650 mg Q6HP PRN PO 12/02/24 16:15 Empaglifozin 10 mg DAILY PO 12/03/24 10:00 12/05/24 09:39 10 MG Sacubitril/ Valsartan 1 tab BID PO 12/02/24 22:00 12/05/24 21:38 1 TAB Atorvastatin Calcium 40 mg HS PO 12/03/24 10:00 12/05/24 21:38 40 MG Pantoprazole Sodium 40 mg DAILY PO 12/03/24 10:00 12/05/24 09:40 40 MG Spironolactone 25 mg DAILY PO 12/04/24 10:00 12/05/24 09:39 25 MG Carvedilol 6.25 mg Q12HR PO 12/03/24 22:00 12/05/24 21:37 6.25 MG Allopurinol 300 mg EOD PO 12/06/24 10:00 Digoxin 0.125 mg DAILY PO 12/05/24 10:00 12/05/24 09:40 0.125 MG Clopidogrel Bisulfate 75 mg DAILY PO 12/05/24 10:00 12/05/24 09:40 75 MG EZETIMIBE 10 mg DAILY PO 12/05/24 10:00 12/05/24 09:39 10 MG Melatonin 5 mg HS PRN PO 12/04/24 20:00 12/05/24 21:38 5 MG Furosemide 20 mg DAILY IV 12/06/24 10:00 Laboratory Results Laboratory Tests 12/06/24 06:43 Chemistry Test 12/06/24 06:43 Calcium Level 9.3 mg/dL (8.7-10.4) Coagulation Test 12/06/24 06:43 Prothrombin Time 16.5 sec (9.3-11.8) H Prothrombin Time INR 1.63 (0.9-1.15) H Activated Partial Thromboplast Time 33.6 SEC (24.5-34.5) Urinalysis Test 12/02/24 12:10 Urine Color Yellow (Yellow) Urine Clarity Clear (Clear) Urine pH 5.0 (5.0-9.0) Urine Specific [place] 1.030 (1.001-1.035) Urine Protein Negative (Negative) Urine Ketones 1+ (Negative) H Urine Blood Negative /uL (Negative) Urine Nitrite Negative (Negative) Urine Bilirubin Negative (Negative) Urine Urobilinogen Normal mg/dL (Negative) Urine Leukocyte Esterase Negative /uL (Negative) Urine RBC <1 /hpf (0 - 3) Urine Microscopic WBC 1 /HPF (0-3) Urine Squamous Epithelial Cells None seen /hpf (<5) Urine Bacteria None seen /hpf (None Seen) Urine Glucose 4+ mg/dL (Normal) H Labs and/or images reviewed: Labs reviewed by me, Image(s) reviewed by me Assessment/Plan Assessment/Plan 78 y.o male with PMHx of AFIB, HTN and HLD, presents to the ED for a chief complaint of SOB that started 4-5 days ago and has progressively worsened. At first, patient only had exertional SOB but now is constant even when resting. He mentions that SOB enables him to sleep, states he tosses and turns and has also been feeling weak as a result of lack of sleep. Additionally, he complains of dizziness linked to BP and AFIB monitored at home. He denies any chest pain, fever, chills, pain. 12/02: Patient here with shortness of breath, BNP elevated, CXR with increased pulmonary artery size concern for vascular congestion,. In ED found to be in AFib RVR, amnio was given. On warfarin for unknown reason mostly warfarin 5 mg,. We will continue amiodarone, start Lasix and diurese, echo pending 12/03: Patient still has rales, AFib RVR better controlled since metoprolol started with amnio as well, rate 90s now, cardiology evaluating this morning pending recommendations. Echo pending. Lasix was on ordered, we will order Lasix 40 b.i.d. today. 12/04: Patient is still has rales lower lobes bilateral mild increase in T bili, mildly increase creatinine, we will continue Lasix. We will reach out to Cardiology whether continuation of amiodarone as needed. Currently patient is irregularly irregular on tele AFib rate of 90s. Patient woke up last night short of breath with domes feeling,? KIMBERLEE,. We could try BiPAP, patient presented with oxygen he will think about it and let nurse know. Patient is still on 3 L nasal cannula oxygen, continuation of Lasix and BiPAP might help further decreased need of oxygen. Decrease Lasix to 40 once daily. We will re- evaluate tomorrow. 12/05: Patient appears euvolemic. EF is low 20%, cardiology wants to do left heart catheterization tomorrow. We will discuss with Cardiology regarding Lasix as patient euvolemic, may need to p.o.. For now we will change Lasix to 20 mg IV daily. 12/06: Patient scheduled for left heart catheterization today. Follow up with Cardiology thereafter to give recommendations and reassess for discharge. Diagnosis: Acute hypoxic respiratory failure Atrial fibrillation with rapid ventricular rate Acute exacerbation of chronic CHF, diastolic and systolic dysfunction likely Hypertension Hyperlipidemia History of CAD with 2 X CABG Plan: Lasix 40 IV b.i.d. Amiodarone IV status post load Echo cardiogram pending Continue other home medications allopurinol, Lipitor, Coreg, Jardiance, Entresto, warfarin 5 We will use metoprolol tartrate instead of Coreg Warfarin INR per pharmacy Tele Full code Plan discussed with: Patient My Orders Orders - XIMENA HARMON MD Procedure Category Date Status Time Furosemide Injection PHA 12/06/24 In Process (Lasix Injection) 10:00 Date of Service: Dec 06, 2024 Billing Provider: XIMENA HARMON MD Common Visit Codes: [id number] INP/OBS CARE(HIGH) XIMENA HARMON MD Dec 06, 2024 10:14
[2024-12-06] MEDS: CLOPIDOGREL BISULFATE 75 MG TAB ONE (11:34)
--- NOTE | 2024-12-06 11:36 | DVHOP2 ---
Operative Report - 2 Report Details Date: 12/06/24 Preop Diagnosis: CAD Postop Diagnosis: CAD successful PTCA and stenting/shockwave therapy lithotripsy of RCA. Surgeon: Ramandeep Keenan MD Anesthesiologist: Conscious sedation Anesthesia: Mac, Local Consent: The patient was informed of the risks and benefits of the procedure. These include but are not limited to complications of anesthesia, postoperative infection, incomplete relief of symptoms, recurrence of symptoms, damage to blood vessels, nerves and tendons, deep venous thrombosis, pulmonary embolism and possible need for repeat surgery in the future. Complications: No complications Findings: Stenotic RCA. Three-vessel disease. Cardiomyopathy. Patent SMITH to the LAD. Patent saphenous graft to PDA. Indications for Surgery: Chest pain Name of Procedure Performed Left heart catheterization. Bilateral cine coronary angiography. Left ventriculography. Visualization of saphenous venous graft and left internal mammary artery. Lithotripsy and angioplasty of RCA. PTCA and stenting of the RCA. Procedure Details Procedure Details: Prior local anesthesia with 2% lidocaine to the right groin and full informed consent obtained the patient was prepped and draped in the usual fashion followed by placement of a six Stateless sheath into right femoral artery through which six Stateless Elvia catheters were used to cannulate both right and left coronary ostia and a six Stateless pigtail catheter was used for ventriculography w ithout complications. Visualization of saphenous venous grafts occurred with a AL1 one/AR1 and SINGH catheter to the internal mammary artery. A shockwave balloon was used to perform lithotripsy of the RCA as will be delineated. Drug- eluting stents were used Hemodynamics: Aortic blood pressure was 130/70. End-diastolic pressure was 10 without a gradient across the aortic valve on pullback. Coronary anatomy: The RCA is a large vessel significant calcification in its proximal mid and distal segments. The proximal segment a proximally 20 mm from the origin has a 80-90% stenosis. This vessel is heavily calcified. The mid distal segments were left free of significant disease. The PDA is occluded. Left main is large and normal. Left anterior descending has a significant 95% long tubular stenosis with competitive flow from the SINGH. A large intermediate branch is free of significant disease. The circumflex is large with two marginals free of significant disease Left internal mammary artery to the LAD is patent. The saphenous venous graft to the PDA is patent Ventriculography in the OLMEDO projection shows an EF of about 25% with severe global hypokinesis and an enlarged left ventricle. Angioplasty was performed for which a AL1 guide was placed into the RCA. A Specter wire placed across the area of stenosis followed by pre dilatation with a two five and a 3-0 balloon. At high pressures/20 atmospheres. We then placed a 4-0 by 12 mm shockwave balloon and inflated to four atmospheres and performed a total of 12 treatments. Six of those treatments were at four atmospheres and we repositioned the balloon and placed the balloon both distal and proximal to the sent for of the lesion and dilated at six atmospheres with lithotripsy treatments of up to 10 seconds in length. There was excellent antegrade flow without thrombus formation under dissection. We then placed a 4-0 by 12 mm harry Medtronic drug-eluting stent at a proximally 15 atmospheres with notable improvement in flow. There was VIVEK two flow and T IMI 2-3 flow was noted post stenting. Impression: elevated left ventricular end-diastolic pressure at rest. Decreased left ventricular ejection fraction. Successful PTCA stenting lithotripsy treatment of the RCA. Patent saphenous graft to the PDA. Patent internal mammary artery to the LAD. Recommendations: Continue risk factor modification dual antiplatelet therapy and afterload reduction. Condition Good Disposition Still a Patient Date of Service: Dec 06, 2024 Billing Provider: RAMANDEEP KEENAN Sr., MD Cardiology Common Codes: [id number] INP/OBS CARE (High) Cardiology Procedure Codes: 29484 -PTCA W/STENT PLACEMENT, 68874-VEIP HEART CATH W/INTRA INJ, 33198-Q/L HEART CATH W/BYPASS GFT RAMANDEEP KEENAN Sr., MD Dec 06, 2024 11:36
[2024-12-06] MEDS: FUROSEMIDE 40 MG/4 ML VIAL IV SCH (14:20)
[2024-12-06] MEDS: ALLOPURINOL 100 MG TAB PO SCH (14:22)
[2024-12-07 01:00] VITALS: BP 101/67; PULSE 72; RESP 17; TEMP 97.7; O2SAT 96
[2024-12-07 05:00] VITALS: BP 117/84; PULSE 80; RESP 18; TEMP 97.7; O2SAT 98
[2024-12-07 07:00] LABS: Alanine Aminotransferase 24 U/L (7-40); Albumin 3.6 g/dL (3.2-4.8); Alkaline Phosphatase 82 U/L (46-116); Anion Gap 12 (5-15); BUN/Creatinine Ratio 14.1 (10.0-20.0); Blood Urea Nitrogen 13 mg/dL (9-23); Calcium 9.1 mg/dL (8.7-10.4); Carbon Dioxide 26 mmol/L (20-31); Chloride 104 mmol/L (98-107); Glucose 90 mg/dL (74-106); Potassium 3.6 mmol/L (3.5-5.1); Sodium 142 mmol/L (136-145); Total Protein 5.8 g/dL (5.7-8.2)
[2024-12-07 07:10] LABS: Bilirubin, Total 1.8 mg/dL (0.2-1.0)
[2024-12-07 08:00] VITALS: PULSE 76
[2024-12-07] MEDS ORDERED: SPIR25TA8 PO (09:57)
[2024-12-07] MEDS ORDERED: ASPI1TAB19 PO (09:57)
[2024-12-07] MEDS ORDERED: DIGO0.12 PO (09:57)
[2024-12-07] MEDS ORDERED: CLOP75TA28 PO (09:57)
--- NOTE | 2024-12-07 10:04 | DVHDS2 ---
Discharge Summary Date of Admission Dec 02, 2024 at 18:22 Date of Discharge: Dec 07, 2024 Admitting Diagnosis sob Labs/Diagnostic Data: Laboratory Results Test 12/07/24 06:16 12/06/24 06:43 12/05/24 07:06 12/03/24 05:33 Sodium Level 142 mmol/L (136-145) Potassium Level 3.6 mmol/L (3.5-5.1) Chloride Level 104 mmol/L (98-107) Carbon Dioxide Level 26 mmol/L (20-31) Anion Gap 12 (5-15) Blood Urea Nitrogen 13 mg/dL (9-23) Creatinine 0.92 mg/dL (0.700-1.30) Glomerular Filtration Rate Calc 86 mL/min (>90) BUN/Creatinine Ratio 14.1 (10.0-20.0) Serum Glucose 90 mg/dL (74-106) Calcium Level 9.1 mg/dL (8.7-10.4) Total Bilirubin 1.8 mg/dL (0.2-1.0) Aspartate Amino Transferase (AST) 27 U/L (13-40) Alanine Aminotransferase (ALT) 24 U/L (7-40) Alkaline Phosphatase 82 U/L (46-116) Total Protein 5.8 g/dL (5.7-8.2) Albumin 3.6 g/dL (3.2-4.8) White Blood Count 6.5 10^3/uL (4.4-10.8) Red Blood Count 4.46 10^6/uL (4.5-5.90) Hemoglobin 15.1 g/dL (13.5-17.5) Hematocrit 43.2 % (41.0-53.0) Mean Corpuscular Volume 96.9 fL (80.0-100.0) Mean Corpuscular Hemoglobin 33.8 pg (28.0-32.0) Mean Corpuscular Hemoglobin Concent 34.9 g/dL (32.0-36.0) Red Cell Distribution Width 13.7 % (11.8-14.3) Platelet Count 152 10^3/uL (140-450) Mean Platelet Volume 8.9 fL (6.9-10.8) Neutrophils (%) (Auto) 61.9 % (37.0-80.0) Lymphocytes (%) (Auto) 26.8 % (10.0-50.0) Monocytes (%) (Auto) 9.7 % (0.0-12.0) Eosinophils (%) (Auto) 0.9 % (0.0-7.0) Basophils (%) (Auto) 0.7 % (0.0-2.0) Neutrophils # (Auto) 4.0 10 ^3/uL (1.6-8.6) Lymphocytes # (Auto) 1.7 10 ^3/uL (0.4-5.4) Monocytes # (Auto) 0.6 10 ^3/uL (0-1.3) Eosinophils # (Auto) 0.1 10 ^3/uL (0-0.8) Basophils # (Auto) 0 10 ^3/uL (0-0.2) Nucleated Red Blood Cells 0.1 % Prothrombin Time 16.5 sec (9.3-11.8) Prothrombin Time INR 1.63 (0.9-1.15) Activated Partial Thromboplast Time 33.6 SEC (24.5-34.5) Magnesium Level 2.1 mg/dL (1.6-2.6) B-Type Natriuretic Peptide 607.82 pg/mL (0-100) Triglycerides Level 68 mg/dL (< 150) Cholesterol Level 108 mg/dL (< 200) LDL Cholesterol 42 mg/dL (< 100) HDL Cholesterol 46 mg/dL (40-59) Thyroid Stimulating Hormone (TSH) 3.77 uIU/mL (0.55-4.78) Test 12/02/24 12:10 12/02/24 12:04 12/02/24 09:17 Urine Color Yellow (Yellow) Urine Clarity Clear (Clear) Urine pH 5.0 (5.0-9.0) Urine Specific [place] 1.030 (1.001-1.035) Urine Protein Negative (Negative) Urine Ketones 1+ (Negative) Urine Blood Negative /uL (Negative) Urine Nitrite Negative (Negative) Urine Bilirubin Negative (Negative) Urine Urobilinogen Normal mg/dL (Negative) Urine Leukocyte Esterase Negative /uL (Negative) Urine RBC <1 /hpf (0 - 3) Urine Microscopic WBC 1 /HPF (0-3) Urine Squamous Epithelial Cells None seen /hpf (<5) Urine Bacteria None seen /hpf (None Seen) Urine Glucose 4+ mg/dL (Normal) Urine Opiates Screen Neg (NEGATIVE) Urine Fentanyl Screen Neg (NEGATIVE) Urine Barbiturates Screen Neg (NEGATIVE) Urine Phencyclidine Screen Neg (NEGATIVE) Urine Amphetamines Screen Neg (NEGATIVE) Urine Benzodiazepines Screen Neg (NEGATIVE) Urine Cocaine Screen Neg (NEGATIVE) Urine Cannabinoids Screen Neg (NEGATIVE) Troponin I High Sensitivity 15 ng/L (</=54) Hemoglobin A1c 5.2 % A1C (<5.7) Other Laboratory Tests 12/07/24 06:16 12/06/24 06:43 Brief Hx & Hospital Course: 78 y.o male with PMHx of AFIB, HTN and HLD, presents to the ED for a chief complaint of SOB that started 4-5 days ago and has progressively worsened. At first, patient only had exertional SOB but now is constant even when resting. He mentions that SOB enables him to sleep, states he tosses and turns and has also been feeling weak as a result of lack of sleep. Additionally, he complains of dizziness linked to BP and AFIB monitored at home. He denies any chest pain, fever, chills, pain. 12/02: Patient here with shortness of breath, BNP elevated, CXR with increased pulmonary artery size concern for vascular congestion,. In ED found to be in AFib RVR, amnio was given. On warfarin for unknown reason mostly warfarin 5 mg,. We will continue amiodarone, start Lasix and diurese, echo pending 12/03: Patient still has rales, AFib RVR better controlled since metoprolol started with amnio as well, rate 90s now, cardiology evaluating this morning pending recommendations. Echo pending. Lasix was on ordered, we will order Lasix 40 b.i.d. today. 12/04: Patient is still has rales lower lobes bilateral mild increase in T bili, mildly increase creatinine, we will continue Lasix. We will reach out to Cardiology whether continuation of amiodarone as needed. Currently patient is irregularly irregular on tele AFib rate of 90s. Patient woke up last night short of breath with domes feeling,? KIMBERLEE,. We could try BiPAP, patient presented with oxygen he will think about it and let nurse know. Patient is still on 3 L nasal cannula oxygen, continuation of Lasix and BiPAP might help further decreased need of oxygen. Decrease Lasix to 40 once daily. We will re- evaluate tomorrow. 12/05: Patient appears euvolemic. EF is low 20%, cardiology wants to do left heart catheterization tomorrow. We will discuss with Cardiology regarding Lasix as patient euvolemic, may need to p.o.. For now we will change Lasix to 20 mg IV daily. 12/06: Patient scheduled for left heart catheterization today. Follow up with Cardiology thereafter to give recommendations and reassess for discharge. - LHC: elevated left ventricular end-diastolic pressure at rest. Decreased left ventricular ejection fraction. Successful PTCA stenting lithotripsy treatment of the RCA. Patent saphenous graft to the PDA. Patent internal mammary artery to the LAD. 12/07: patient had angiogram yesterday requiring PTCA stenting right RCA, no further recommendations. Vital signs stable. AFib rate controlled. Stable for discharge today. See discharge plan below. Diagnosis: Acute hypoxic respiratory failure Atrial fibrillation with rapid ventricular rate Acute exacerbation of chronic CHF, diastolic and systolic dysfunction likely s/p angiogram PTCA 12/06/24 Hypertension Hyperlipidemia History of CAD with 2 X CABG plan: - continue home meds allopurinol 300 every other day, nexium 40 mg daily, - continue aspirin 81 daily and Plavix 75 daily for 1 year, continue Lipitor - stop warfarin - continue Coreg 6 twice daily, digoxin 0.125 mg daily, Jardiance 10 mg daily, Zetia 10 mg daily, Lasix 40 mg daily, Entresto twice daily, Aldactone 25 mg daily, -Cardiac diet /low-salt / low fluid intake maximum 1.5 L per day -Follow up with Cardiology -Follow up with PCP to review discharge Condition at Discharge: Good Final Diagnosis/Problems List Acute hypoxic respiratory failure Atrial fibrillation with rapid ventricular rate Acute exacerbation of chronic CHF, diastolic and systolic dysfunction likely s/p angiogram PTCA 12/06/24 Hypertension Hyperlipidemia History of CAD with 2 X CABG Discharge Disposition: Home Discharge Instruct/Medications Diet: Cardiac 2g Na,low cholest Activity: No Restrictions, As Tolerated Follow Up/Referral: below Medications: below Scheduled Allopurinol (Allopurinol), 300 MG PO EOD, (Reported) Aspirin (Aspirin), 81 MG PO DAILY Atorvastatin Calcium (Atorvastatin Calcium), 1 TAB PO DAILY, (Reported) Carvedilol (Carvedilol), 6.25 MG PO BID, (Reported) Cholecalciferol (Vitamin D3), 50 MCG PO EOD, (Reported) Clopidogrel Bisulfate (Plavix), 1 TAB PO DAILY Digoxin (Digoxin), 125 MCG PO DAILY Empagliflozin (Jardiance), 10 MG PO DAILY, (Reported) Esomeprazole Magnesium Trihydr (Nexium), 1 CAP PO DAILY, (Reported) Ezetimibe (Zetia), 1 TAB PO DAILY, (Reported) Multiple Vitamin (Mvi Tab), 1 TAB PO DAILY, (Reported) Sacubitril-Valsartan (Entresto 24-26 mg), 1 TAB PO BID, (Reported) Spironolactone (Spironolactone), 1 TAB PO DAILY Warfarin Sodium (Warfarin Sodium), 5 MG PO DAILY, (Reported) Discharge Statement: "Patient was advised to return to the ER or call 911 if any headaches, dizziness, shortness of breath, chest pain, abdominal pain, bleeding, fevers, or worsening of medical condition. Patient was counseled about treatment plan, medications, possible side effects, patientverbalized understanding. All questions were answered to the best of my ability. This discharge took greater then 30 minutes in planning, reviewing documentation, counseling the patient, and discussing with other team members." Date of Service: Dec 07, 2024 Billing Provider: XIMENA HARMON MD Common Visit Codes: [id number]/[id number] DISCH DAY >30min XIMENA HARMON MD Dec 07, 2024 10:04
--- NOTE | 2024-12-07 10:47 | DVHPN2 ---
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 Patient denies any cardiac symptoms at time of assessment. Objective vital signs Vital Sign Date Time Temp Pulse Resp B/P (MAP) Pulse Ox O2 Delivery O2 Flow Rate FiO2 12/07/24 08:34 91 12/07/24 08:34 127/79 12/07/24 08:00 Room Air* 0 21 12/07/24 05:00 97.7 18 98 97.7 Total Intake and Output 12/06/24 12/06/24 12/07/24 15:00 23:00 07:00 Intake Total 900 ml 400 ml Balance 900 ml 400 ml medications Current Medications Medications Dose Ordered Sig/Nora Route Start Time Stop Time Status Last Admin Dose Admin Acetaminophen/ Hydrocodone Bitart 1 tab Q4HP PRN PO 12/02/24 16:15 12/05/24 21:39 1 TAB Ondansetron HCl 4 mg Q4HP PRN IV 12/02/24 16:15 Acetaminophen 650 mg Q6HP PRN PO 12/02/24 16:15 Empaglifozin 10 mg DAILY PO 12/03/24 10:00 12/07/24 08:34 10 MG Sacubitril/ Valsartan 1 tab BID PO 12/02/24 22:00 12/07/24 08:34 1 TAB Atorvastatin Calcium 40 mg HS PO 12/03/24 10:00 12/06/24 21:36 40 MG Pantoprazole Sodium 40 mg DAILY PO 12/03/24 10:00 12/07/24 08:35 40 MG Spironolactone 25 mg DAILY PO 12/04/24 10:00 12/07/24 08:33 25 MG Carvedilol 6.25 mg Q12HR PO 12/03/24 22:00 12/07/24 08:34 6.25 MG Allopurinol 300 mg EOD PO 12/06/24 10:00 12/06/24 14:22 300 MG Digoxin 0.125 mg DAILY PO 12/05/24 10:00 12/07/24 08:34 0.125 MG Clopidogrel Bisulfate 75 mg DAILY PO 12/05/24 10:00 12/07/24 08:35 75 MG EZETIMIBE 10 mg DAILY PO 12/05/24 10:00 12/07/24 08:35 10 MG Melatonin 5 mg HS PRN PO 12/04/24 20:00 12/06/24 21:36 5 MG Furosemide 20 mg DAILY IV 12/06/24 10:00 12/07/24 08:33 20 MG Aspirin 81 mg DAILY PO 12/07/24 10:00 12/07/24 08:33 81 MG Examination: GENERAL:Normal, LUNGS:Normal, CVS:Normal (Atrial fibrillation with controlled rate), NEURO:Normal laboratory and microbiology Laboratory Tests 12/07/24 06:16 12/06/24 06:43 Test 12/07/24 06:16 Range/Units Serum Glucose 90 74-106 mg/dL Problem List/Assessment/Plan Problem List/Assessment/Plan Progressive coronary artery disease s/p PTCA stenting and lithotripsy to RCA Likely persistent/long-standing atrial fibrillation with intermittent RVR, Stage IIIb (on warfarin therapy) Severe coronary artery disease status post double-vessel CABG in 2016 Acute on chronic decompensated HFrEF, NYHA class IV Status post left atrial appendage clip Hypertension Dyslipidemia Alcohol use Plan/Recommendation (Dr. Keenan) * Transthoracic echocardiogram revealed a LVEF of <20% * Dilated LV. RV dysfunction. Biatrial enlargement. Moderate MR. Dilated IVC * Continue guideline directed medical therapy for CHF as tolerated * Preload and afterload reduction * Strict I&Os, daily weights, maintain fluid restriction * Dual antiplatelet therapy and lipid-lowering agent * Hx of ELOISE closure, consider discontinuation of warfarin therapy * Discussed with Dr. Keenan and confirmed ELOISE device is in place. D/C warfarin * [id number] VASc score: 5 points, HAS-BLED score: 2 points * Rate control, beta-marci and digoxin therapy * Replete electrolytes as needed, K>4 and Mg>2 * Close Cardiac surveillance. Monitor ECG changes closely * Risk factor modifications, counseled * Alcohol use and affects on atrial fibrillation Case discussed with . The patient underwent a coronary angiogram with left heart catheterization on 12/06/2024 in which successful PTCA stenting lithotripsy treatment of the RCA was performed. We will recommend for the patient continue with dual antiplatelet therapy and lipid-lowering agent. Continue with guideline directed medical therapy for CHF as tolerated. The patient has been scheduled to follow up with in the Cardiology Clinic on 12/22/2024 at 8:45 a.m. Thank you for allowing us to care for this patient. Please call with any questions or concerns. This medical document was created using an electronic medical record system with voice recognition software and computerized dictation system. Although this document has been carefully reviewed, there might still be some phonetic and typographical errors. Occasional wrong-word or ``sound-alike substitutions may have occurred due to the inherent limitations of voice recognition software. These areas are purely typographical due to imperfections of the software programs and do not reflect any compromise in the patient's medical care. Please read the chart carefully and recognize, using context, where these substitutions have occurred. Plan discussed with: Patient Date of Service: Dec 07, 2024 Billing Provider: ALYSSA STRONG Common Visit Codes: [id number] INP/OBS CARE(HIGH) ALYSSA STRONG Dec 07, 2024 10:47
[2024-12-07 12:52] VITALS: BP 98/68; PULSE 58; RESP 18; TEMP 97.4; O2SAT 97
== END 2024-12-07 12:25 | disposition home or self-care (01) | DRG 323 ==
LOC: ER 08:09 → OVERFLOW 18:22 → TELE-EAST 22:41
PROVIDERS: ADMIT Student in an Organized Health Care Education/Training Program; ATTEND Student in an Organized Health Care Education/Training Program
PROC: 027034Z Dilation of Coronary Artery, One Artery with Drug-eluting Intraluminal Device, Percutaneous Approach (ICD-10-PCS; principal; 2024-12-06)
PROC: 02F03ZZ Fragmentation in Coronary Artery, One Artery, Percutaneous Approach (ICD-10-PCS; 2024-12-06)
PROC: 4A023N7 Measurement of Cardiac Sampling and Pressure, Left Heart, Percutaneous Approach (ICD-10-PCS; 2024-12-06)
PROC: B211YZZ Fluoroscopy of Multiple Coronary Arteries using Other Contrast (ICD-10-PCS; 2024-12-06)
PROC: B215YZZ Fluoroscopy of Left Heart using Other Contrast (ICD-10-PCS; 2024-12-06)
PROC: B212YZZ Fluoroscopy of Single Coronary Artery Bypass Graft using Other Contrast (ICD-10-PCS; 2024-12-06)
PROC: B218YZZ Fluoroscopy of Left Internal Mammary Bypass Graft using Other Contrast (ICD-10-PCS; 2024-12-06)
DX: I11.0 Hypertensive heart disease with heart failure (principal); I50.23 Acute on chronic systolic (congestive) heart failure; J96.01 Acute respiratory failure with hypoxia; I42.9 Cardiomyopathy, unspecified; I25.10 Atherosclerotic heart disease of native coronary artery without angina pectoris; I48.91 Unspecified atrial fibrillation; E78.00 Pure hypercholesterolemia, unspecified; F10.90 Alcohol use, unspecified, uncomplicated; Y90.9 Presence of alcohol in blood, level not specified; M10.9 Gout, unspecified; G47.33 Obstructive sleep apnea (adult) (pediatric); Z95.1 Presence of aortocoronary bypass graft; Z79.01 Long term (current) use of anticoagulants; Z95.818 Presence of other cardiac implants and grafts; Z79.82 Long term (current) use of aspirin
CPT/HCPCS: 36415; 71045; 80048; 80053; 80061; 80307; 81001; 83036; 83735; 83880; 84443; 84484; 85025; 85610; 85730; 92928; 92972; 93005; 93306; 93459; 96365; 97163; 99152; 99291; 99292; G0378; J2250; Q9967